=== PATIENT | male | born 1945 | race African-American/Black ===

== ENCOUNTER 2019-02-11 09:03 | Emergency (ER) | payer MEDICARE ==
[2019-02-11 10:16] LABS: Hemoglobin 13.4 gm/dl (11.8-15.2); Mean Corpuscular HGB Conc 35 % (32-34); Mean Corpuscular Volume 95 fl (84-94); Platelet Count 146 K/mm3 (140-440); Red Blood Count 4.02 M/mm3 (3.65-5.03)
--- NOTE | 2019-02-11 10:34 | Emergency Department Report ---
ED General Adult HPI - General Chief complaint: High BP Stated complaint: HYPERTENSION Time Seen by Provider: 02/11/19 10:05 Source: patient, EMS Mode of arrival: Stretcher Limitations: Language Barrier - History of Present Illness Initial comments: 73-year-old male presents to ED with complaint of hypertension and insomnia. Patient states he ran out of his sleeping pills, and has been unable to sleep for the last 2 nights. Patient states this has made him very tired. Patient reports he took his blood pressure this morning and it was 160s/90s. The patient denies headache, chest pain, shortness of breath, abdominal pain, vomiting, diarrhea or, fever. -: days(s) (2) Severity scale (0 -10): 0 Consistency: constant Improves with: medication Worsens with: none Associated Symptoms: denies: chest pain, cough, diaphoresis, fever/chills, headaches, nausea/vomiting, shortness of breath - Related Data Home Medications Medication Instructions Recorded Confirmed Last Taken Gabapentin [Neurontin] 300 mg PO DAILY 01/27/14 10/05/18 Unknown ALPRAZolam [Xanax TAB] 0.5 mg PO BID PRN 08/13/18 10/05/18 Unknown Cyclobenzaprine [Flexeril 10 MG 10 mg PO HS 08/13/18 10/05/18 Unknown TAB] Metoprolol [Lopressor TAB] 25 mg PO DAILY 08/13/18 10/05/18 Unknown Prazosin [Minipress] 1 mg PO HS 08/13/18 10/05/18 Unknown Ranitidine HCl [Acid Supervisor Anodizing] 150 mg PO BID 08/13/18 10/05/18 Unknown Previous Rx's Medication Instructions Recorded Last Taken Type metFORMIN XR [Glucophage XR] 500 mg PO QDDIAB #60 tablet 08/14/18 Unknown Rx Allergies Allergy/AdvReac Type Severity Reaction Status Date / Time No Known Allergies Allergy Verified 02/11/19 09:19 ED Review of Systems ROS: Stated complaint: HYPERTENSION Other details as noted in HPI Comment: All other systems reviewed and negative Constitutional: denies: chills, fever Respiratory: denies: cough, shortness of breath Cardiovascular: denies: chest pain Gastrointestinal: denies: abdominal pain, nausea, vomiting, diarrhea Neurological: weakness (generalized). denies: headache ED Past Medical Hx - Past Medical History Previous Medical History?: Yes Hx Hypertension: Yes Hx Heart Attack/AMI: No Hx Congestive Heart Failure: No Hx Diabetes: Yes Hx Deep Vein Thrombosis: No Hx Liver Disease: No Hx Arthritis: Yes Additional medical history: high cholesterol, sinusitis, - Surgical History Past Surgical History?: Yes Hx Coronary Stent: No Hx Pacemaker: No Hx Internal Defibrillator: No - Social History Smoking Status: Never Smoker - Medications Home Medications: Home Medications Medication Instructions Recorded Confirmed Last Taken Type Gabapentin [Neurontin] 300 mg PO DAILY 01/27/14 10/05/18 Unknown History ALPRAZolam [Xanax TAB] 0.5 mg PO BID PRN 08/13/18 10/05/18 Unknown History Cyclobenzaprine [Flexeril 10 MG 10 mg PO HS 08/13/18 10/05/18 Unknown History TAB] Metoprolol [Lopressor TAB] 25 mg PO DAILY 08/13/18 10/05/18 Unknown History Prazosin [Minipress] 1 mg PO HS 08/13/18 10/05/18 Unknown History Ranitidine HCl [Acid Supervisor Anodizing] 150 mg PO BID 08/13/18 10/05/18 Unknown History metFORMIN XR [Glucophage XR] 500 mg PO QDDIAB #60 tablet 08/14/18 10/05/18 Unknown Rx ED Physical Exam - General Limitations: Language Barrier General appearance: alert, in no apparent distress - Head Head exam: Present: atraumatic, normocephalic - Eye Eye exam: Present: normal appearance - ENT ENT exam: Present: mucous membranes moist - Neck Neck exam: Present: normal inspection - Respiratory Respiratory exam: Present: normal lung sounds bilaterally. Absent: respiratory distress - Cardiovascular Cardiovascular Exam: Present: regular rate, normal rhythm - GI/Abdominal GI/Abdominal exam: Present: soft. Absent: distended, tenderness - Extremities Exam Extremities exam: Present: normal inspection - Neurological Exam Neurological exam: Present: alert, oriented X3 - Psychiatric Psychiatric exam: Present: normal affect, normal mood - Skin Skin exam: Present: warm, dry, intact, normal color ED Course Vital Signs 02/11/19 02/11/19 09:17 11:53 Temperature 97.8 F Pulse Rate 92 H 70 Respiratory 20 18 Rate Blood Pressure 140/81 107/65 [Right] O2 Sat by Pulse 97 97 Oximetry ED Medical Decision Making - Lab Data Result diagrams: 02/11/19 10:03 02/11/19 10:03 - Medical Decision Making The patient presented to the ED for hypertension and insomnia. Patient not hyp ertensive here in ED. The patient reports that he has ran out of his medication to help him sleep at night. Labs unremarkable except for mild hyponatremia. Patient is neurologically intact, no neuro deficits on exam. Advised follow-up with his PCP for medication refill. Will discharge at this time. Critical care attestation.: If time is entered above; I have spent that time in minutes in the direct care of this critically ill patient, excluding procedure time. ED Disposition Clinical Impression: Insomnia Disposition: DC-01 TO HOME OR SELFCARE Is pt being admited?: No Condition: Stable Instructions: Insomnia (ED) Referrals: PRIMARY CARE, [Referring] - 3-5 Days Time of Disposition: 11:03
[2019-02-11 10:38] LABS: Alanine Aminotransferase 16 units/L (7-56); Albumin 3.8 g/dL (3.9-5); BUN/Creatinine Ratio 22; Blood Urea Nitrogen 13 mg/dL (9-20); Calcium 8.7 mg/dL (8.4-10.2); Hemolysis Index 8
[2019-02-11 10:49] LABS: Bilirubin,Urine NEG (Negative); Blood,Urine NEG (Negative); Color,Urine Yellow (Yellow); Protein,Urine <15 mg/dL mg/dL (Negative); Urobilinogen,Urine < 2.0 mg/dL (<2.0)
[2019-02-11 10:50] LABS: RBC,Urine < 1.0 /HPF (0.0-6.0); WBC,Urine < 1.0 /HPF (0.0-6.0)
[2019-02-11 11:54] VITALS: BP 107/65
== END 2019-02-11 11:54 | disposition home or self-care (01) ==
LOC: ED 09:03
DX: I10 Essential (primary) hypertension (principal); G47.00 Insomnia, unspecified; E11.9 Type 2 diabetes mellitus without complications; M19.90 Unspecified osteoarthritis, unspecified site; E78.00 Pure hypercholesterolemia, unspecified; Z79.899 Other long term (current) drug therapy
CPT/HCPCS: 36415; 80053; 81001; 82962; 85027

== ENCOUNTER 2019-06-12 09:27 | Inpatient (IN) | payer MEDICARE ==
[2019-06-12] MEDS ORDERED: ASPIRIN PO ONE (10:10)
[2019-06-12 10:33] LABS: Basophils % (Auto) 0.8 % (0.0-1.8); Eosinophils % (Auto) 0.6 % (0.0-4.3); Hematocrit 39.5 % (35.5-45.6); Lymphocytes # (Auto) 0.4 K/mm3 (1.2-5.4); Lymphocytes % (Auto) 13.3 % (13.4-35.0); Mean Corpuscular HGB Conc 35 % (32-34); Mean Corpuscular Volume 93 fl (84-94); Monocytes # (Auto) 0.4 K/mm3 (0.0-0.8); Monocytes % (Auto) 15.7 % (0.0-7.3); Platelet Count 151 K/mm3 (140-440); Red Blood Count 4.23 M/mm3 (3.65-5.03); Red Cell Distribution Width 13.6 % (13.2-15.2)
[2019-06-12 10:53] LABS: BUN/Creatinine Ratio 33; Blood Urea Nitrogen 13 mg/dL (9-20); Calcium 8.6 mg/dL (8.4-10.2); Hemolysis Index 7
[2019-06-12] MEDS ORDERED: NACL 0.9% 500 ML 500 ML IV ONE (11:22)
[2019-06-12] MEDS ORDERED: TYLENOL PO ONE (11:22)
[2019-06-12 11:48] LABS: Alanine Aminotransferase 16 units/L (7-56); Albumin 4.5 g/dL (3.9-5); Uric Acid 1.7 mg/dL (3.5-7.6)
[2019-06-12 12:00] LABS: Bilirubin,Direct < 0.2 mg/dL (0-0.2)
--- NOTE | 2019-06-12 12:12 | History and Physical Report ---
History of Present Illness Chief complaint: My head hurts, and I feel weak History of present illness: 73 YO Male with DM, HTN, OA, HLD, Depression, Severe Malnutrition, PTSD presents to ED for evaluation. Pt was in his normal state of health around bedtime at 2130 hours. Pt was awakened from sleep around 0500 hours feeling weak, as well as experienced a severe headache and chest discomfort. EMS notified, and upon a rrival the patient was found to be in distress. Pt seen and evaluated in ED and underwent CT head which revealed evidence of Subacute CVA. Pt also found to have hyponatremia. Pt initiated on CVA protocol, and admitted to ML unit with remote telemetry. Pt is outside therapeutic window for TPA. Neurology consulted. Pt initiated on anitplatelet therapy. Pt denies fever, chills, CP, palpitations, NVD, Productive cough, skin rash, or recent ill contacts. Prior admission on 10/04/18 reviewed. All listed medication reconciled at time of admission. Past History Past Medical History: other (see hpi) Past Surgical History: No surgical history, Other (reviewed) Social history: . denies: smoking, alcohol abuse, prescription drug abuse Family history: diabetes, hypertension Medications and Allergies Allergies Allergy/AdvReac Type Severity Reaction Status Date / Time No Known Allergies Allergy Verified 06/12/19 09:29 Home Medications Medication Instructions Recorded Confirmed Last Taken Type Gabapentin [Neurontin] 300 mg PO DAILY 01/27/14 10/05/18 Unknown History ALPRAZolam [Xanax TAB] 0.5 mg PO BID PRN 08/13/18 10/05/18 Unknown History Cyclobenzaprine [Flexeril 10 MG 10 mg PO HS 08/13/18 10/05/18 Unknown History TAB] Metoprolol [Lopressor TAB] 25 mg PO DAILY 08/13/18 10/05/18 Unknown History Prazosin [Minipress] 1 mg PO HS 08/13/18 10/05/18 Unknown History Ranitidine HCl [Acid Clay Miner] 150 mg PO BID 08/13/18 10/05/18 Unknown History metFORMIN XR [Glucophage XR] 500 mg PO QDDIAB #60 tablet 08/14/18 10/05/18 Unknown Rx Nitrofurantoin Camas/M-Cryst 100 mg PO Q12HR #14 capsule 05/10/19 Unknown Rx [Macrobid CAP] Famotidine [Pepcid] 40 mg PO QHS #30 tablet 05/11/19 Unknown Rx Ondansetron [Zofran Odt] 4 mg PO Q8HR #20 tab.rapdis 05/11/19 Unknown Rx Ondansetron [Zofran Odt] 4 mg PO Q8HR PRN #14 tab.rapdis 05/11/19 Unknown Rx levoFLOXacin [Levaquin TAB] 500 mg PO QDAY #7 tablet 05/11/19 Unknown Rx traMADol [Ultram] 50 mg PO Q6HR PRN #15 tablet 05/11/19 Unknown Rx Review of Systems Constitutional: no weight loss, no weight gain, no fever, no chills Ears, nose, mouth and throat: no ear pain, no ear discharge, no tinnitis, no decreased hearing, no nose pain, no nasal congestion Cardiovascular: no chest pain, no orthopnea, no palpitations, no rapid/irregular heart beat, no edema, no syncope Respiratory: no cough, no cough with sputum, no excessive sputum, no hemoptysis, no shortness of breath Gastrointestinal: no nausea, no vomiting, no diarrhea, no constipation Genitourinary Male: no hematuria, no flank pain, no discharge, no urinary hesitancy, no nocturia Rectal: no pain, no incontinence, no bleeding Musculoskeletal: no neck stiffness, no neck pain, no shooting arm pain, no arm numbness/tingling, no low back pain Integumentary: no rash, no pruritis, no redness, no sores, no wounds Neurological: weakness, headaches, no transient paralysis, no paralysis, no tingling, no seizures, no syncope Psychiatric: no anxiety, no memory loss, no change in sleep habits, no sleep disturbances, no hypersomnia, no change in appetite Endocrine: no cold intolerance, no heat intolerance, no polyphagia, no excessive thirst, no polyuria, no nocturia, no excessive sweating Hematologic/Lymphatic: no easy bruising, no easy bleeding, no lymphadenopathy, no lymphedema Allergic/Immunologic: no urticaria, no allergic rhinitis, no wheezing, no anaphylaxis Exam - Constitutional Vitals: Temp Pulse Resp BP Pulse Ox 98.1 F 73 18 143/81 97 06/12/19 09:29 06/12/19 09:29 06/12/19 09:29 06/12/19 09:29 06/12/19 09:29 General appearance: Present: mild distress - EENT Eyes: Present: PERRL ENT: hearing intact, clear oral mucosa - Neck Neck: Present: supple, normal ROM - Respiratory Respiratory effort: normal Respiratory: bilateral: CTA - Cardiovascular Heart Sounds: Present: S1 & S2. Absent: rub, click - Extremities Extremities: pulses symmetrical, No edema Peripheral Pulses: within normal limits - Abdominal General gastrointestinal: Present: soft, non-tender, non-distended, normal bowel sounds Male genitourinary: Present: normal - Integumentary Integumentary: Present: clear, warm, dry - Musculoskeletal Musculoskeletal: gait normal, strength equal bilaterally - Psychiatric Psychiatric: appropriate mood/affect, intact judgment & insight - Neurologic Neurologic: CNII-XII intact, moves all extremities Results - Labs CBC & Chem 7: 06/12/19 10:18 06/12/19 10:18 Labs: Abnormal lab results 06/12/19 06/12/19 06/12/19 Range/Units 09:43 10:18 10:18 WBC 2.7 L (4.5-11.0) K/mm3 MCH 33 H (28-32) pg MCHC 35 H (32-34) % Lymph % (Auto) 13.3 L (13.4-35.0) % Camas % (Auto) 15.7 H (0.0-7.3) % Lymph # 0.4 L (1.2-5.4) K/mm3 Sodium 118 L* (137-145) mmol/L Chloride 83.6 L (98-107) mmol/L Creatinine 0.4 L (0.8-1.5) mg/dL Glucose 127 H (75-100) mg/dL POC Glucose 143 H (70-105) Uric Acid (3.5-7.6) mg/dL Total Creatine Kinase (55-170) units/L 06/12/19 Range/Units 11:11 WBC (4.5-11.0) K/mm3 MCH (28-32) pg MCHC (32-34) % Lymph % (Auto) (13.4-35.0) % Cam[place] % (Auto) (0.0-7.3) % Lymph # (1.2-5.4) K/mm3 Sodium (137-145) mmol/L Chloride (98-107) mmol/L Creatinine (0.8-1.5) mg/dL Glucose (75-100) mg/dL POC Glucose (70-105) Uric Acid 1.7 L (3.5-7.6) mg/dL Total Creatine Kinase 249 H (55-170) units/L Assessment and Plan - Patient Problems (1) CVA (cerebral vascular accident) Current Visit: Yes Status: Acute Qualifiers: Precerebral and cerebral artery: middle cerebral artery Laterality of affected vessel: right Plan to address problem: Subacute R MCA Infarct: CTA protocol: CT head, neuro check, antiplatelet therapy, PT/OT/Speech therapy, Echo, carotid doppler, seizure precautions, swallow screening, Neurology consulted, further imaging as per neurology team. (2) Headache Current Visit: Yes Status: Acute Qualifiers: Headache chronicity pattern: acute headache Plan to address problem: CT head, neuor check, pain control (3) Hyponatremia Current Visit: Yes Status: Acute Plan to address problem: IVF resuscitation therapy, repeat bmp, (4) HTN (hypertension) Current Visit: Yes Status: Acute Qualifiers: Hypertension type: essential hypertension Qualified Code(s): I10 - Essential (primary) hypertension Plan to address problem: monitor bp q shift, permissive htn overnight. (5) HLD (hyperlipidemia) Current Visit: Yes Status: Acute Qualifiers: Hyperlipidemia type: mixed hyperlipidemia Qualified Code(s): E78.2 - Mixed hyperlipidemia Plan to address problem: Lipid panel, statin therapy. (6) Diabetes Current Visit: Yes Status: Acute Plan to address problem: ADA diet, insulin sliding scale, accucheck, hypoglycemia protocol (7) Osteoarthritis Current Visit: Yes Status: Acute Qualifiers: Laterality: unspecified laterality Plan to address problem: pain control, nsaid therapy, (8) Severe malnutrition Current Visit: Yes Status: Acute Plan to address problem: Encourage increased protein in take, dietary supplementation (9) DVT prophylaxis Current Visit: Yes Status: Acute Plan to address problem: SCD to BLE while in bed, supportive care
[2019-06-12] MEDS ORDERED: SODIUM CHLORIDE FLUSH SYRINGE 10 ML IV PRN ×2 (12:13→13:33)
[2019-06-12] MEDS ORDERED: PROVENTIL IH PRN (12:13)
--- NOTE | 2019-06-12 12:16 | Cat Scan Report ---
CT head/brain wo con INDICATION / CLINICAL INFORMATION: 73 years Male; headache. TECHNIQUE: Routine CT head without contrast. All CT scans at this location are performed using CT dos e reduction for ALARA by means of automated exposure control. COMPARISON: 01/27/2014 FINDINGS: BRAIN / INTRACRANIAL CONTENTS: Subacute branch MCA infarct seen in the middle/inferior frontal gyral region on the right. No signs of hemorrhagic transformation. Otherwise, no acute hemorrhage, mass effect, midline shift, hydrocephalus, or acute, large territoria l infarct. There are minimal areas of decreased attenuation in the white matter of the cerebral hemispheres. The se are nonspecific findings and may be related to microangiopathy (hypertension, diabetes, atheroscle rosis), given the patient's age. It might be difficult to evaluate for small areas of ischemia withou t diffusion imaging by MRI. CRANIOCERVICAL JUNCTION: No significant abnormality. ORBITS: No significant abnormality of visualized orbits. SINUSES / MASTOIDS: There is minimal mucosal thickening in the ethmoids. ADDITIONAL FINDINGS: No significant atherosclerotic disease appreciated. IMPRESSION: 1. Small region of subacute ischemia in the anterior MCA territory on the right as described above. N o signs of hemorrhagic transformation. Follow-up with diffusion imaging by MRI, as clinically warrant ed. Signer Name: Tan Sandra MD, III Signed: 06/12/2019 12:12 PM Workstation Name: [id number]
--- NOTE | 2019-06-12 12:18 | XRay Report ---
CHEST 2 VIEWS INDICATION / CLINICAL INFORMATION: Chest Pain. COMPARISON: 05/10/2019 FINDINGS: SUPPORT DEVICES: None. HEART / MEDIASTINUM: No significant abnormality. LUNGS / PLEURA: No significant pulmonary or pleural abnormality. No pneumothorax. ADDITIONAL FINDINGS: No significant additional findings. IMPRESSION: 1. No acute findings. Signer Name: Cody Vo MD Signed: 06/12/2019 12:14 PM Workstation Name: [id number]
--- NOTE | 2019-06-12 13:31 | Emergency Department Report ---
ED General Adult HPI - General Chief complaint: Hyperglycemia Stated complaint: CHEST PAIN/BLOOD SUGAR CHECK Time Seen by Provider: 06/12/19 10:53 Source: patient, EMS, business owner/engineer, RN notes reviewed, old records reviewed Mode of arrival: Ambulatory Limitations: Language Barrier - History of Present Illness Initial comments: Primary care Dr.: Dr. Jose Luis Emerson Commercial Pilot number: [id number] This is a 73-year-old gentleman. The patient reportedly has a history of arthritis, diabetes, hypertension and high cholesterol. The patient presents to the ER today with complaint of sensation of elevated blood sugar, and chest pain and headache. Apparently, his glucose was 172. The chest pain is left-sided. It's been present intermittently since 5:00 in the morning. It does not radiate anywhere. It does not have exacerbating or relieving factors. The patient denies DVT, pulmonary embolism risk factors. The headache is frontal. The headache has been present since 5:00 in the morning. The headache is intermittent. The headache is not described as sudden or thunderclap in nature. The patient denies neck pain, neck stiffness, chest pain, abdominal pain, shortness of breath and urinary symptoms. The patient denies alcohol consumption. The patient denies loss of vision, visual change, and jaw claudication. -: hour(s) Location: head, chest Severity scale (0 -10): 6 Quality: other Consistency: other Improves with: other Worsens with: other - Related Data Home Medications Medication Instructions Recorded Confirmed Last Taken Gabapentin [Neurontin] 300 mg PO DAILY 01/27/14 10/05/18 Unknown ALPRAZolam [Xanax TAB] 0.5 mg PO BID PRN 08/13/18 10/05/18 Unknown Cyclobenzaprine [Flexeril 10 MG 10 mg PO HS 08/13/18 10/05/18 Unknown TAB] Metoprolol [Lopressor TAB] 25 mg PO DAILY 08/13/18 10/05/18 Unknown Prazosin [Minipress] 1 mg PO HS 08/13/18 10/05/18 Unknown Ranitidine HCl [Acid Long Line Teamster] 150 mg PO BID 08/13/18 10/05/18 Unknown Previous Rx's Medication Instructions Recorded Last Taken Type metFORMIN XR [Glucophage XR] 500 mg PO QDDIAB #60 tablet 08/14/18 Unknown Rx Nitrofurantoin [place]/M-Cryst 100 mg PO Q12HR #14 capsule 05/10/19 Unknown Rx [Macrobid CAP] Famotidine [Pepcid] 40 mg PO QHS #30 tablet 05/11/19 Unknown Rx Ondansetron [Zofran Odt] 4 mg PO Q8HR #20 tab.rapdis 05/11/19 Unknown Rx Ondansetron [Zofran Odt] 4 mg PO Q8HR PRN #14 tab.rapdis 05/11/19 Unknown Rx levoFLOXacin [Levaquin TAB] 500 mg PO QDAY #7 tablet 05/11/19 Unknown Rx traMADol [Ultram] 50 mg PO Q6HR PRN #15 tablet 05/11/19 Unknown Rx Allergies Allergy/AdvReac Type Severity Reaction Status Date / Time No Known Allergies Allergy Verified 06/12/19 09:29 ED Review of Systems ROS: Stated complaint: CHEST PAIN/BLOOD SUGAR CHECK Other details as noted in HPI Constitutional: denies: fever Eyes: denies: vision change ENT: denies: dental pain, congestion Respiratory: denies: shortness of breath, SOB with exertion, SOB at rest, wheezing Cardiovascular: chest pain Gastrointestinal: denies: abdominal pain Genitourinary: denies: dysuria Skin: denies: lesions Neurological: headache. denies: weakness Hematological/Lymphatic: denies: easy bleeding ED Past Medical Hx - Past Medical History Hx Hypertension: Yes Hx Heart Attack/AMI: No Hx Congestive Heart Failure: No Hx Diabetes: Yes Hx Deep Vein Thrombosis: No Hx Liver Disease: No Hx Arthritis: Yes Additional medical history: high cholesterol, sinusitis, - Surgical History Hx Coronary Stent: No Hx Pacemaker: No Hx Internal Defibrillator: No - Social History Smoking Status: Unknown if ever smoked - Medications Home Medications: Home Medications Medication Instructions Recorded Confirmed Last Taken Type Gabapentin [Neurontin] 300 mg PO DAILY 01/27/14 10/05/18 Unknown History ALPRAZolam [Xanax TAB] 0.5 mg PO BID PRN 08/13/18 10/05/18 Unknown History Cyclobenzaprine [Flexeril 10 MG 10 mg PO HS 08/13/18 10/05/18 Unknown History TAB] Metoprolol [Lopressor TAB] 25 mg PO DAILY 08/13/18 10/05/18 Unknown History Prazosin [Minipress] 1 mg PO HS 08/13/18 10/05/18 Unknown History Ranitidine HCl [Acid Long Line Teamster] 150 mg PO BID 08/13/18 10/05/18 Unknown History metFORMIN XR [Glucophage XR] 500 mg PO QDDIAB #60 tablet 08/14/18 10/05/18 Unknown Rx Nitrofurantoin [place]/M-Cryst 100 mg PO Q12HR #14 capsule 05/10/19 Unknown Rx [Macrobid CAP] Famotidine [Pepcid] 40 mg PO QHS #30 tablet 05/11/19 Unknown Rx Ondansetron [Zofran Odt] 4 mg PO Q8HR #20 tab.rapdis 05/11/19 Unknown Rx Ondansetron [Zofran Odt] 4 mg PO Q8HR PRN #14 tab.rapdis 05/11/19 Unknown Rx levoFLOXacin [Levaquin TAB] 500 mg PO QDAY #7 tablet 05/11/19 Unknown Rx traMADol [Ultram] 50 mg PO Q6HR PRN #15 tablet 05/11/19 Unknown Rx ED Physical Exam - General Limitations: Language Barrier General appearance: alert, in no apparent distress - Head Head exam: Present: atraumatic, normocephalic - Eye Eye exam: Present: normal appearance, EOMI. Absent: nystagmus - ENT ENT exam: Present: normal exam, normal orophraynx, mucous membranes moist, normal external ear exam - Neck Neck exam: Present: normal inspection, full ROM. Absent: tenderness, meningismus - Respiratory Respiratory exam: Present: normal lung sounds bilaterally. Absent: respiratory distress - Cardiovascular Cardiovascular Exam: Present: regular rate, normal rhythm, normal heart sounds. Absent: bradycardia, tachycardia, irregular rhythm, systolic murmur, diastolic murmur, rubs, gallop - GI/Abdominal GI/Abdominal exam: Present: soft. Absent: distended, tenderness, guarding, rebound, rigid, pulsatile mass - Rectal Rectal exam: Present: deferred - Extremities Exam Extremities exam: Present: normal inspection, full ROM, other (2+ pulses noted in the bilateral upper, lower extremities. There is no long bone tenderness. Musculoskeletal compartments are soft. The pelvis is stable.). Absent: pedal edema, calf tenderness - Back Exam Back exam: Present: normal inspection, full ROM. Absent: tenderness, CVA tenderness (R), CVA tenderness (L), paraspinal tenderness, vertebral tenderness - Neurological Exam Neurological exam: Present: alert, other (visual acuity intact to finger c ounting and color perception at a close distance. There is no facial droop. The tongue is midline. The extraocular movements are intact bilaterally. There is 5 out of 5 strength bilateral upper, lower extremities. Sensation is intact to light touch bilateral upper, lower extremities.) - Psychiatric Psychiatric exam: Present: normal affect, normal mood - Skin Skin exam: Present: warm, dry, intact, normal color. Absent: rash ED Course Vital Signs 06/12/19 06/12/19 06/12/19 09:29 11:07 11:30 Temperature 98.1 F Pulse Rate 73 Respiratory 18 Rate Blood Pressure 143/81 143/78 154/79 O2 Sat by Pulse 97 98 98 Oximetry 06/12/19 06/12/19 12:00 12:30 Temperature Pulse Rate Respiratory Rate Blood Pressure 128/76 136/82 O2 Sat by Pulse 99 98 Oximetry ED Medical Decision Making - Lab Data Result diagrams: 06/12/19 10:18 06/12/19 10:18 Vital Signs 06/12/19 06/12/19 06/12/19 09:29 11:07 11:30 Temperature 98.1 F Pulse Rate 73 Respiratory 18 Rate Blood Pressure 143/81 143/78 154/79 O2 Sat by Pulse 97 98 98 Oximetry 06/12/19 06/12/19 12:00 12:30 Temperature Pulse Rate Respiratory Rate Blood Pressure 128/76 136/82 O2 Sat by Pulse 99 98 Oximetry Lab Results 06/12/19 06/12/19 06/12/19 Range/Units 09:43 10:18 10:18 WBC 2.7 L (4.5-11.0) K/mm3 RBC 4.23 (3.65-5.03) M/mm3 Hgb 14.0 (11.8-15.2) gm/dl Hct 39.5 (35.5-45.6) % MCV 93 (84-94) fl MCH 33 H (28-32) pg MCHC 35 H (32-34) % RDW 13.6 (13.2-15.2) % Plt Count 151 (140-440) K/mm3 Lymph % (Auto) 13.3 L (13.4-35.0) % [place] % (Auto) 15.7 H (0.0-7.3) % Eos % (Auto) 0.6 (0.0-4.3) % Baso % (Auto) 0.8 (0.0-1.8) % Lymph # 0.4 L (1.2-5.4) K/mm3 [place] # 0.4 (0.0-0.8) K/mm3 Eos # 0.0 (0.0-0.4) K/mm3 Baso # 0.0 (0.0-0.1) K/mm3 Seg Neutrophils % 69.6 (40.0-70.0) % Seg Neutrophils # 1.9 (1.8-7.7) K/mm3 Sodium 118 L* (137-145) mmol/L Potassium 4.4 (3.6-5.0) mmol/L Chloride 83.6 L (98-107) mmol/L Carbon Dioxide 22 (22-30) mmol/L Anion Gap 17 mmol/L BUN 13 (9-20) mg/dL Creatinine 0.4 L (0.8-1.5) mg/dL Estimated GFR > 60 ml/min BUN/Creatinine Ratio 33 % Glucose 127 H (75-100) mg/dL POC Glucose 143 H (70-105) Uric Acid (3.5-7.6) mg/dL Calcium 8.6 (8.4-10.2) mg/dL Magnesium (1.7-2.3) mg/dL Total Bilirubin (0.1-1.2) mg/dL Direct Bilirubin (0-0.2) mg/dL AST (5-40) units/L ALT (7-56) units/L Alkaline Phosphatase (35-129) units/L Total Creatine Kinase (55-170) units/L Troponin T < 0.010 (0.00-0.029) ng/mL Total Protein (6.3-8.2) g/dL Albumin (3.9-5) g/dL Albumin/Globulin Ratio % TSH (0.270-4.200) mlU/mL 06/12/19 06/12/19 Range/Units 11:11 11:11 WBC (4.5-11.0) K/mm3 RBC (3.65-5.03) M/mm3 Hgb (11.8-15.2) gm/dl Hct (35.5-45.6) % MCV (84-94) fl MCH (28-32) pg MCHC (32-34) % RDW (13.2-15.2) % Plt Count (140-440) K/mm3 Lymph % (Auto) (13.4-35.0) % [place] % (Auto) (0.0-7.3) % Eos % (Auto) (0.0-4.3) % Baso % (Auto) (0.0-1.8) % Lymph # (1.2-5.4) K/mm3 [place] # (0.0-0.8) K/mm3 Eos # (0.0-0.4) K/mm3 Baso # (0.0-0.1) K/mm3 Seg Neutrophils % (40.0-70.0) % Seg Neutrophils # (1.8-7.7) K/mm3 Sodium (137-145) mmol/L Potassium (3.6-5.0) mmol/L Chloride (98-107) mmol/L Carbon Dioxide (22-30) mmol/L Anion Gap mmol/L BUN (9-20) mg/dL Creatinine (0.8-1.5) mg/dL Estimated GFR ml/min BUN/Creatinine Ratio % Glucose (75-100) mg/dL POC Glucose (70-105) Uric Acid 1.7 L (3.5-7.6) mg/dL Calcium (8.4-10.2) mg/dL Magnesium 2.00 (1.7-2.3) mg/dL Total Bilirubin 0.30 (0.1-1.2) mg/dL Direct Bilirubin < 0.2 (0-0.2) mg/dL AST 23 (5-40) units/L ALT 16 (7-56) units/L Alkaline Phosphatase 68 (35-129) units/L Total Creatine Kinase 249 H (55-170) units/L Troponin T (0.00-0.029) ng/mL Total Protein 7.0 (6.3-8.2) g/dL Albumin 4.5 (3.9-5) g/dL Albumin/Globulin Ratio 1.8 % TSH 1.970 (0.270-4.200) mlU/mL - EKG Data -: EKG Interpreted by Ct EKG shows normal: sinus rhythm Rate: normal - EKG Data 06/12/19 13:35 The EKG shows a sinus rhythm, 79 bpm, normal axis, QTC is 398 ms, there is left ventricular hypertrophy, there is motion artifact. The EKG is abnormal, it is not consistent with ST elevation myocardial infarction. The EKG is unchanged from prior from April 2019. - Radiology Data Radiology results: report reviewed, image reviewed Differential diagnosis, including but not limited to: X-ray the chest is negative for acute disease. Noncontrast CT scan of the brain suggestive subacute MCA infarct. Referring Physician: LISA MARAVILLA Patient Name: NITHIN CHAUDHRY Date of : 1945 Sex: Male Report Date: 2019-06-12 Report Status: Finalized Findings [facility] [address] [place] [address] Cat Scan Report Signed Patient: NITHIN CHAUDHRY MR#: [id number] : 1945 Acct:[id number] Age/Sex: 73 / M ADM Date: 06/12/19 Loc: ED Attending Dr: Ordering Physician: LIAS MARAVILLA MD Date of Service: 06/12/19 Procedure(s): CT head/brain wo con Accession Number(s): [id number] cc: LISA MARAVILLA MD CT head/brain wo con INDICATION / CLINICAL INFORMATION: 73 years Male; headache. TECHNIQUE: Routine CT head without contrast. All CT scans at this location are performed using CT dose reduction for ALARA by means of automated exposure control. COMPARISON: 01/27/2014 FINDINGS: BRAIN / INTRACRANIAL CONTENTS: Subacute branch MCA infarct seen in the middle/inferior frontal gyral region on the right. No signs of hemorrhagic transformation. Otherwise, no acute hemorrhage, mass effect, midline shift, hydrocephalus, or acute, large territorial infarct. There are minimal areas of decreased attenuation in the white matter of the cerebral hemispheres. These are nonspecific findings and may be related to microangiopathy (hypertension, diabetes, atherosclerosis), given the patient's age. It might be difficult to evaluate for small areas of ischemia without diffusion imaging by MRI. CRANIOCERVICAL JUNCTION: No significant abnormality. ORBITS: No significant abnormality of visualized orbits. SINUSES / MASTOIDS: There is minimal mucosal thickening in the ethmoids. ADDITIONAL FINDINGS: No significant atherosclerotic disease appreciated. IMPRESSION: 1. Small region of subacute ischemia in the anterior MCA territory on the right as described above. No signs of hemorrhagic transformation. Follow-up with diffusion imaging by MRI, as clinically w arranted. Signer Name: Tan Sandra MD, III Signed: 06/12/2019 12:12 PM Workstation Name: [email or web address] Transcribed By: HR Dictated By: Tan Sandra MD Electronically Authenticated By: Tan Sandra MD Signed Date/Time: 06/12/19 1212 DD/ 1206 TD/TT: - Medical Decision Making Differential diagnosis, including but not limited to: Dehydration, pneumonia, urinary tract infection, electrolyte, migraine headache, tension headache, cluster headache, subacute stroke, acute coronary syndrome, pneumonia Assessment and plan: 73-year-old gentleman with a primary complaint of hyperglycemia, headache, and chest pain. The patient is afebrile with reassuring vital signs. He is not tachycardic, tachypneic, hypoxic, he is low risk by well's criteria. Troponin negative, EKG unchanged from prior, had a nuclear stress test earlier on this year negative for acute disease. GCS of 15, NIH score of 0. Exam not consistent or suggestive of large vessel occlusion at this time. CT scan of the brain suggests a subacute MCA infarct. Patient not a TPA candidate given last known well time is not known, given NIH score of 0. Emergent CT angiogram not indicated given exam at this time. Aspirin will be ordered. He is found to be hyponatremic. He'll be started on gentle IV hydration. X-ray the chest is unremarkable. Hospital physician, Dr. Ellington to admit. Critical care attestation.: If time is entered above; I have spent that time in minutes in the direct care of this critically ill patient, excluding procedure time. ED Disposition Clinical Impression: Hyponatremia, Headache Chest pain Qualifiers: Chest pain type: unspecified Qualified Code(s): R07.9 - Chest pain, unspecified Disposition: OP ADMIT IP TO THIS HOSP Is pt being admited?: Yes Does the pt Need Aspirin: Yes Condition: Good
[2019-06-12] MEDS ORDERED: TYLENOL PO PRN (13:33)
[2019-06-12] MEDS ORDERED: REGLAN PO PRN (13:33)
[2019-06-12] MEDS ORDERED: PHENERGAN PR PRN (13:33)
[2019-06-12] MEDS ORDERED: MILK OF MAGNESIA PO PRN (13:33)
[2019-06-12] MEDS ORDERED: DULCOLAX PR PRN (13:33)
[2019-06-12] MEDS ORDERED: ZOFRAN IV PRN (13:33)
[2019-06-12] MEDS ORDERED: ZOFRAN ODT PO PRN (13:34)
[2019-06-12] MEDS ORDERED: ULTRAM PO PRN (13:34)
[2019-06-12] MEDS ORDERED: XANAX PO PRN (13:34)
[2019-06-12] MEDS ORDERED: D50W (25GM) Syringe IV PRN (13:37)
[2019-06-12] MEDS: NACL 0.9% 1000 ML 1,000 ML IV SCH (14:00)
[2019-06-12 15:41] LABS: Bilirubin,Urine NEG (Negative); Blood,Urine NEG (Negative); Color,Urine Colorless (Yellow); Protein,Urine <15 mg/dL mg/dL (Negative); RBC,Urine < 1.0 /HPF (0.0-6.0); Urobilinogen,Urine < 2.0 mg/dL (<2.0); WBC,Urine < 1.0 /HPF (0.0-6.0)
[2019-06-12 15:56] LABS: Creatinine,Urine 17.8 mg/dL (0.1-20.0)
[2019-06-12] MEDS: HumaLOG SUB-Q SCH ×2 (16:24→23:15)
[2019-06-12] MEDS ORDERED: NON-FORMULARY (Famotidine [Pepcid] 40 MG) PO SCH (22:00)
[2019-06-12] MEDS ORDERED: NON-FORMULARY (Ranitidine Hcl [Acid Reducer] 150 MG) PO SCH (22:00)
[2019-06-12] MEDS: PRAZOSIN PO SCH (23:08)
[2019-06-12] MEDS: PEPCID PO SCH (23:08)
[2019-06-12] MEDS: FLEXERIL PO SCH (23:08)
[2019-06-12] MEDS: SODIUM CHLORIDE FLUSH SYRINGE 10 ML IV SCH (23:09)
[2019-06-13] MEDS: NACL 0.9% 1000 ML 1,000 ML IV SCH (03:03)
[2019-06-13 06:38] LABS: BUN/Creatinine Ratio 20; Blood Urea Nitrogen 8 mg/dL (9-20); Calcium 7.8 mg/dL (8.4-10.2); Hemolysis Index 8
--- NOTE | 2019-06-13 07:46 | Progress Note ---
Assessment and Plan Assessment and plan: 73 YO Male with DM, HTN, OA, HLD, Depression, Severe Malnutrition, PTSD presents to ED for evaluation. Pt was in his normal state of health around bedtime at 2130 hours. Pt was awakened from sleep around 0500 hours feeling weak, as well as experienced a severe headache and chest discomfort. EMS notified, and upon arrival the patient was found to be in distress. Pt seen and evaluated in ED and underwent CT head which revealed evidence of Subacute CVA. Pt also found to have hyponatremia. Pt initiated on CVA protocol, and admitted to ML unit with remote telemetry. Pt is outside therapeutic window for TPA. Neurology consulted. Pt initiated on anitplatelet therapy. Pt denies fever, chills, CP, palpitations, NVD, Productive cough, skin rash, or recent ill contacts. Prior admission on 10/04/18 reviewed. All listed medication reconciled at time of admission. * Per ED documentation: Primary complaint of hyperglycemia, headache, and chest pain, ...he had a nuclear stress test earlier on this year negative for acute disease * He is found to be hyponatremic. He'll be started on gentle IV hydration. X- ray the chest is unremarkable. CT HEAD: Small region of subacute ischemia in the anterior MCA territory on the right as described above. No signs of hemorrhagic transformation. Follow-up with diffusion imaging by MRI, as clinically w arranted. Carotid US: Pending. (1) CVA (cerebral vascular accident) Current Visit: Yes Status: Acute Qualifiers: Precerebral and cerebral artery: middle cerebral artery Laterality of affected vessel: right Plan to address problem: Subacute R MCA Infarct: neuro check, antiplatelet therapy, PT/OT/Speech therapy, Echo, carotid doppler, seizure precautions, swallow screening, Neurology consulted, further imaging as per neurology team. (2) Headache Current Visit: Yes Status: Acute Qualifiers: Headache chronicity pattern: acute headache Plan to address problem: Continue Neuro check, pain control (3) Hyponatremia Current Visit: Yes Status: Acute Plan to address problem: IVF resuscitation therapy, repeat bmp, Nephrology consulted (4) HTN (hypertension) Current Visit: Yes Status: Acute Qualifiers: Hypertension type: essential hypertension Qualified Code(s): I10 - Essential (primary) hypertension Plan to address problem: monitor bp q shift, permissive htn overnight. (5) HLD (hyperlipidemia) Current Visit: Yes Status: Acute Qualifiers: Hyperlipidemia type: mixed hyperlipidemia Qualified Code(s): E78.2 - Mixed hyperlipidemia Plan to address problem: Lipid panel, statin therapy. (6) Diabetes Current Visit: Yes Status: Acute Plan to address problem: ADA diet, insulin sliding scale, accucheck, hypoglycemia protocol (7) Osteoarthritis Current Visit: Yes Status: Acute Qualifiers: Laterality: unspecified laterality Plan to address problem: pain control, nsaid therapy, (8) Severe malnutrition Current Visit: Yes Status: Acute Plan to address problem: Encourage increased protein in take, dietary supplementation (9) Atypical chest pain: ?Costochondritis: Considering recent negative stress test this year and normal EKG, will have patient follow with Cardiology outpatient (10)DVT prophylaxis Current Visit: Yes Status: Acute Plan to address problem: SCD to BLE while in bed, supportive care Disposition: Continue inpatient care due to Low Sodium. Discharge in AM if sodium corrected History Interval history: F/U: CVA and Hyponatremia. Generalized weakness. Hospitalist Physical - Physical exam Narrative exam: General appearance: Present: Resting comfortable, - EENT Eyes: Present: PERRL ENT: hearing intact, clear oral mucosa - Neck Neck: Present: supple, normal ROM - Respiratory Respiratory effort: normal Respiratory: bilateral: CTA - Cardiovascular Heart Sounds: Present: S1 & S2. Absent: rub, click - Extremities Extremities: pulses symmetrical, No edema Peripheral Pulses: within normal limits - Abdominal General gastrointestinal: Present: soft, non-tender, non-distended, normal bowel sounds Male genitourinary: Present: normal - Integumentary Integumentary: Present: clear, warm, dry - Musculoskeletal Musculoskeletal: gait normal, strength equal bilaterally - Psychiatric Psychiatric: appropriate mood/affect, intact judgment & insight - Neurologic Neurologic: CNII-XII intact, moves all extremities - Constitutional Vitals: Temp Pulse Resp BP Pulse Ox 97.7 F 74 20 113/67 97 06/13/19 02:20 06/13/19 02:20 06/13/19 02:20 06/13/19 02:20 06/13/19 02:20 General appearance: Present: mild distress Results - Labs CBC & Chem 7: 06/12/19 10:18 06/13/19 05:40 Labs: Laboratory Last Values WBC 2.7 K/mm3 (4.5-11.0) L 06/12/19 10:18 RBC 4.23 M/mm3 (3.65-5.03) 06/12/19 10:18 Hgb 14.0 gm/dl (11.8-15.2) 06/12/19 10:18 Hct 39.5 % (35.5-45.6) 06/12/19 10:18 MCV 93 fl (84-94) 06/12/19 10:18 MCH 33 pg (28-32) H 06/12/19 10:18 MCHC 35 % (32-34) H 06/12/19 10:18 RDW 13.6 % (13.2-15.2) 06/12/19 10:18 Plt Count 151 K/mm3 (140-440) 06/12/19 10:18 Lymph % (Auto) 13.3 % (13.4-35.0) L 06/12/19 10:18 [place] % (Auto) 15.7 % (0.0-7.3) H 06/12/19 10:18 Eos % (Auto) 0.6 % (0.0-4.3) 06/12/19 10:18 Baso % (Auto) 0.8 % (0.0-1.8) 06/12/19 10:18 Lymph # 0.4 K/mm3 (1.2-5.4) L 06/12/19 10:18 [place] # 0.4 K/mm3 (0.0-0.8) 06/12/19 10:18 Eos # 0.0 K/mm3 (0.0-0.4) 06/12/19 10:18 Baso # 0.0 K/mm3 (0.0-0.1) 06/12/19 10:18 Seg Neutrophils % 69.6 % (40.0-70.0) 06/12/19 10:18 Seg Neutrophils # 1.9 K/mm3 (1.8-7.7) 06/12/19 10:18 Sodium 129 mmol/L (137-145) L D 06/13/19 05:40 Potassium 3.7 mmol/L (3.6-5.0) 06/13/19 05:40 Chloride 97.3 mmol/L (98-107) L 06/13/19 05:40 Carbon Dioxide 20 mmol/L (22-30) L 06/13/19 05:40 Anion Gap 15 mmol/L 06/13/19 05:40 BUN 8 mg/dL (9-20) L 06/13/19 05:40 Creatinine 0.4 mg/dL (0.8-1.5) L 06/13/19 05:40 Estimated GFR > 60 ml/min 06/13/19 05:40 BUN/Creatinine Ratio 20 % 06/13/19 05:40 Glucose 71 mg/dL (75-100) L 06/13/19 05:40 POC Glucose 80 (70-105) 06/12/19 23:21 Uric Acid 1.7 mg/dL (3.5-7.6) L 06/12/19 11:11 Calcium 7.8 mg/dL (8.4-10.2) L 06/13/19 05:40 Magnesium 2.00 mg/dL (1.7-2.3) 06/12/19 11:11 Total Bilirubin 0.30 mg/dL (0.1-1.2) 06/12/19 11:11 Direct Bilirubin < 0.2 mg/dL (0-0.2) 06/12/19 11:11 AST 23 units/L (5-40) 06/12/19 11:11 ALT 16 units/L (7-56) 06/12/19 11:11 Alkaline Phosphatase 68 units/L (35-129) 06/12/19 11:11 Total Creatine Kinase 249 units/L (55-170) H 06/12/19 11:11 Troponin T < 0.010 ng/mL (0.00-0.029) 06/12/19 16:15 Total Protein 7.0 g/dL (6.3-8.2) 06/12/19 11:11 Albumin 4.5 g/dL (3.9-5) 06/12/19 11:11 Albumin/Globulin Ratio 1.8 % 06/12/19 11:11 TSH 1.970 mlU/mL (0.270-4.200) 06/12/19 11:11 Urine Color Colorless (Yellow) 06/12/19 Unknown Urine Turbidity Clear (Clear) 06/12/19 Unknown Urine pH 7.0 (5.0-7.0) 06/12/19 Unknown Ur Specific [place] 1.005 (1.003-1.030) 06/12/19 Unknown Urine Protein <15 mg/dl mg/dL (Negative) 06/12/19 Unknown Urine Glucose (UA) Neg mg/dL (Negative) 06/12/19 Unknown Urine Ketones 20 mg/dL (Negative) 06/12/19 Unknown Urine Blood Neg (Negative) 06/12/19 Unknown Urine Nitrite Neg (Negative) 06/12/19 Unknown Urine Bilirubin Neg (Negative) 06/12/19 Unknown Urine Urobilinogen < 2.0 mg/dL (<2.0) 06/12/19 Unknown Ur Leukocyte Esterase Neg (Negative) 06/12/19 Unknown Urine WBC (Auto) < 1.0 /HPF (0.0-6.0) 06/12/19 Unknown Urine RBC (Auto) < 1.0 /HPF (0.0-6.0) 06/12/19 Unknown Urine Osmolality 256 Mosm/kg 06/12/19 Unknown Urine Creatinine 17.8 mg/dL (0.1-20.0) 06/12/19 Unknown Active Medications - Current Medications Current Medications: Generic Name Dose Route Start Last Admin Trade Name Freq PRN Reason Stop Dose Admin Acetaminophen 650 mg 06/12/19 13:33 Tylenol PO Q4H PRN Pain, Mild (1-3) Albuterol 2.5 mg 06/12/19 12:13 Proventil IH Q3H PRN Shortness Of Breath Alprazolam 0.5 mg 06/12/19 13:34 Xanax PO BID PRN Agitation Aspirin 325 mg 06/13/19 10:00 Aspirin PO QDAY LUIS Atorvastatin Calcium 40 mg 06/12/19 22:00 06/12/19 23:08 Lipitor PO 40 mg QHS LUIS Administration Bisacodyl 10 mg 06/12/19 13:33 Dulcolax [place] QDAY PRN Constipation Cyclobenzaprine HCl 10 mg 06/12/19 22:00 06/12/19 23:08 Flexeril PO 10 mg HS LUIS Administration Dextrose 50 ml 06/12/19 13:37 D50w (25gm) Syringe IV Q30MIN PRN Hypoglycemia Famotidine 40 mg 06/12/19 22:00 06/12/19 23:08 Pepcid PO 40 mg QHS LUIS Administration Gabapentin 300 mg 06/13/19 10:00 Neurontin PO DAILY LUIS Sodium Chloride 1,000 mls @ 75 mls/hr 06/12/19 13:00 06/13/19 03:03 Nacl 0.9% 1000 Ml IV 75 mls/hr DIRECT LUIS Administration Insulin Human Lispro 0 unit 06/12/19 16:30 06/12/19 23:15 Humalog SUB-Q Not Given ACHS [facility] Protocol Magnesium Hydroxide 30 ml 06/12/19 13:33 Milk Of Magnesia PO Q4H PRN Constipation Metoclopramide HCl 10 mg 06/12/19 13:33 Reglan PO Q6H PRN Nausea And Vomiting Ondansetron HCl 4 mg 06/12/19 13:33 Zofran IV Q8H PRN Nausea And Vomiting Ondansetron HCl 4 mg 06/12/19 13:34 Zofran Odt PO Q8HR PRN Nausea And Vomiting Prazosin HCl 1 mg 06/12/19 22:00 06/12/19 23:08 Minipress PO 1 mg HS LUIS Administration Promethazine HCl 25 mg 06/12/19 13:33 Phenergan [place] Q6H PRN Nausea And Vomiting Sodium Chloride 10 ml 06/12/19 22:00 06/12/19 23:09 Sodium Chloride Flush Syringe 10 Ml IV 10 ml BID LUIS Administration Sodium Chloride 10 ml 06/12/19 12:13 Sodium Chloride Flush Syringe 10 Ml IV PRN PRN LINE FLUSH Sodium Chloride 10 ml 06/12/19 13:33 Sodium Chloride Flush Syringe 10 Ml IV PRN PRN LINE FLUSH Tramadol HCl 50 mg 06/12/19 13:34 Ultram PO Q6HR PRN PAIN
[2019-06-13] MEDS: HumaLOG SUB-Q SCH ×4 (07:52→21:56)
[2019-06-13] MEDS: GABAPENTIN PO SCH (11:28)
[2019-06-13] MEDS: SODIUM CHLORIDE FLUSH SYRINGE 10 ML IV SCH ×2 (11:29→21:14)
[2019-06-13] MEDS: ASPIRIN PO SCH (11:29)
[2019-06-13] MEDS ORDERED: ATIVAN IV ONE (13:23)
--- NOTE | 2019-06-13 14:29 | Vascular Lab Report ---
"DUPLEX DOPPLER ULTRASOUND CAROTID, BILATERAL INDICATION: stroke. FINDINGS: RIGHT CAROTID: Mild plaque Right CCA velocity: 83 cm/sec. Right ICA peak systolic velocity: 68 cm/sec. ICA/CCA PSV Ratio: 0.8. Right Vertebral Artery: Antegrade flow. LEFT CAROTID: Mild plaque Left CCA velocity: 88 cm/sec. Left ICA peak systolic velocity: 110 cm/sec. ICA/CCA PSV Ratio: 1.26. Left Vertebral Artery: Antegrade flow. IMPRESSION: 1. Right Internal Carotid Artery: Less than 50% diameter stenosis. 2. Left Internal Carotid Artery: Less than 50% diameter stenosis. Velocity criteria are extrapolated from diameter data as defined by the Society of Radiologists in Ul trasound Consensus Conference, Radiology 2003; 229;340-346. Degree of Stenosis (%) || ICA PSV (cm/sec) || Plaque estimate (%) || ICA/CCA PSV Ratio Normal <125 None <2.0 <50 <125 <50 <2.0 50-69 125-230 50 2.0-4.0 70 but less than 100 >230 50 >4.0 Near occlusion High, low, or none visible variable Total occlusion None visible; no lumen N/A Signer Name: Jerome Burton MD Signed: 06/13/2019 2:25 PM Workstation Name: [id number]"
--- NOTE | 2019-06-13 18:29 | Consultation ---
History of Present Illness Consult date: 06/13/19 Reason for Consult: Stroke Chief complaint: Left sided weakness History of present illness: Patient is a 73 y/o man w/ a h/o HTN, HLD, DM, OA, depression, PTSD, malnutrition. He was last known normal at 9pm on 06/11/19. Patient awoke at about 5am on 06/12/19, and noted that he was weak on the LUE/LLE, and also was experiencing chest pain. He then came to [facility] for further evaluation. CT head on admission showed subacute Rt. MCA territory infarct. He states that his Lt. sided weakness persists. Patient was also found to have hyponatremia on admission. Past History Past Medical History: other (see hpi) Past Surgical History: No surgical history, Other (reviewed) Social history: , Lives alone. denies: smoking, alcohol abuse, prescription drug abuse Family history: diabetes, hypertension Medications and Allergies Allergies Allergy/AdvReac Type Severity Reaction Status Date / Time No Known Allergies Allergy Verified 06/12/19 09:29 Home Medications Medication Instructions Recorded Confirmed Last Taken Type Gabapentin [Neurontin] 300 mg PO DAILY 01/27/14 06/13/19 Unknown History ALPRAZolam [Xanax TAB] 0.5 mg PO BID PRN 08/13/18 06/13/19 Unknown History Cyclobenzaprine [Flexeril 10 MG 10 mg PO HS 08/13/18 06/13/19 06/10/19 History TAB] 10 mg Metoprolol [Lopressor TAB] 25 mg PO DAILY 08/13/18 06/13/19 Unknown History Prazosin [Minipress] 1 mg PO HS 08/13/18 06/13/19 Unknown History Ranitidine HCl [Acid Crane Assembler] 150 mg PO BID 08/13/18 06/13/19 Unknown History metFORMIN XR [Glucophage XR] 500 mg PO QDDIAB #60 tablet 08/14/18 06/13/19 Unknown Rx Nitrofurantoin [place]/M-Cryst 100 mg PO Q12HR #14 capsule 05/10/19 06/13/19 Unknown Rx [Macrobid CAP] Famotidine [Pepcid] 40 mg PO QHS #30 tablet 05/11/19 06/13/19 Unknown Rx Ondansetron [Zofran Odt] 4 mg PO Q8HR #20 tab.rapdis 05/11/19 06/13/19 Unknown Rx Ondansetron [Zofran Odt] 4 mg PO Q8HR PRN #14 tab.rapdis 05/11/19 06/13/19 Unknown Rx levoFLOXacin [Levaquin TAB] 500 mg PO QDAY #7 tablet 05/11/19 06/13/19 Unknown Rx traMADol [Ultram] 50 mg PO Q6HR PRN #15 tablet 05/11/19 06/13/19 Unknown Rx Active Meds: Active Medications Acetaminophen (Tylenol) 650 mg PO Q4H PRN PRN Reason: Pain, Mild (1-3) Albuterol (Proventil) 2.5 mg IH Q3H PRN PRN Reason: Shortness Of Breath Alprazolam (Xanax) 0.5 mg PO BID PRN PRN Reason: Agitation Aspirin (Aspirin) 325 mg PO QDAY [facility] Last Admin: 06/13/19 11:29 Dose: 325 mg Documented by: Atorvastatin Calcium (Lipitor) 40 mg PO QHS [facility] Last Admin: 06/12/19 23:08 Dose: 40 mg Documented by: Bisacodyl (Dulcolax) 10 mg TX QDAY PRN PRN Reason: Constipation Cyclobenzaprine HCl (Flexeril) 10 mg PO HS [facility] Last Admin: 06/12/19 23:08 Dose: 10 mg Documented by: Dextrose (D50w (25gm) Syringe) 50 ml IV Q30MIN PRN PRN Reason: Hypoglycemia Famotidine (Pepcid) 40 mg PO QHS [facility] Last Admin: 06/12/19 23:08 Dose: 40 mg Documented by: Gabapentin (Neurontin) 300 mg PO DAILY [facility] Last Admin: 06/13/19 11:28 Dose: 300 mg Documented by: Sodium Chloride (Nacl 0.9% 1000 Ml) 1,000 mls @ 75 mls/hr IV DIRECT [facility] Last Admin: 06/13/19 03:03 Dose: 75 mls/hr Documented by: Insulin Human Lispro (Humalog) 0 unit SUB-Q ACHS [facility]; Protocol Last Admin: 06/13/19 16:48 Dose: Not Given Documented by: Magnesium Hydroxide (Milk Of Magnesia) 30 ml PO Q4H PRN PRN Reason: Constipation Metoclopramide HCl (Reglan) 10 mg PO Q6H PRN PRN Reason: Nausea And Vomiting Ondansetron HCl (Zofran) 4 mg IV Q8H PRN PRN Reason: Nausea And Vomiting Ondansetron HCl (Zofran Odt) 4 mg PO Q8HR PRN PRN Reason: Nausea And Vomiting Prazosin HCl (Minipress) 1 mg PO HS [facility] Last Admin: 06/12/19 23:08 Dose: 1 mg Documented by: Promethazine HCl (Phenergan) 25 mg TX Q6H PRN PRN Reason: Nausea And Vomiting Sodium Chloride (Sodium Chloride Flush Syringe 10 Ml) 10 ml IV BID [facility] Last Admin: 06/13/19 11:29 Dose: 10 ml Documented by: Sodium Chloride (Sodium Chloride Flush Syringe 10 Ml) 10 ml IV PRN PRN PRN Reason: LINE FLUSH Tramadol HCl (Ultram) 50 mg PO Q6HR PRN PRN Reason: PAIN Last Admin: 06/13/19 11:40 Dose: 50 mg Documented by: Review of Systems All systems: negative Cardiovascular: chest pain Neurological: weakness Physical Examination - Vital Signs Vital Signs: Vital Signs Temp Pulse Resp BP Pulse Ox 98.1 F 73 18 143/81 97 06/12/19 09:29 06/12/19 09:29 06/12/19 09:29 06/12/19 09:29 06/12/19 09:29 - Physical Exam Narrative exam: Patient is awake, alert, oriented x4, follows complex commands. PERRL, EOMI, no facial weakness noted, tongue midline, b/l intact to LT. B/l intact to LT in all extremities. B/l intact to FTN and HTN. LUE/LLE: 4/5, RUE/RLE: 5/5. 2+ reflexes throughout. - Constitutional General appearance: comfortable - EENT EENT: Present: ATNC, PERRL, mucous membranes moist, hearing intact, vision intact - Respiratory Respiratory: Present: lungs clear, normal breath sounds - Cardiovascular Cardiovascular: Present: regular rate, normal S1, normal S2 Extremities: Present: no peripheral edema bilatateraly, no clubbing, cyanosis - Gastrointestinal Gastrointestinal: Present: normoactive bowel sounds, soft, non-tender - Integumentary Integumentary: Present: normal - Musculoskeletal Musculoskeletal: Present: no fluid collection, no pain - Psychiatric Psychiatric: Present: mood/affect appropriate - Level of Consciousness 1a. Level of Consciousness: alert/keenly responsive - LOC Questions 1b. LOC Questions: answers both correctly - LOC Command 1c. LOC Commands: performs tasks correctly - Best Gaze 2. Best Gaze: normal - Visual 3. Visual: no visual loss - Facial Palsy 4. Facial Palsy: normal symmetrical movement - Motor Arm 5a. Motor Arm Left: no drift 5b. Motor Arm Right: no drift - Motor Leg 6a. Motor Leg Left: no drift 6b. Motor Leg Right: no drift - Limb Ataxia 7. Limb Ataxia: absent - Sensory 8. Sensory: normal - Best Language 9. Best Language: no aphasia - Dysarthria 10. Dysarthria: normal - Extinction and Inattention 11. Extinction/Inattention: no abnormality - Scoring Total Score: 0 Stroke Severity: No Stroke Symptoms Results - Laboratory Findings CBC and BMP: 06/12/19 10:18 06/13/19 05:40 Abnormal Lab Findings: Abnormal Labs 06/12/19 06/12/19 06/12/19 09:43 10:18 10:18 WBC 2.7 L MCH 33 H MCHC 35 H Lymph % (Auto) 13.3 L [place] % (Auto) 15.7 H Lymph # 0.4 L Sodium 118 L* Chloride 83.6 L Carbon Dioxide BUN Creatinine 0.4 L Glucose 127 H POC Glucose 143 H Uric Acid Calcium Total Creatine Kinase 06/12/19 06/12/19 06/13/19 11:11 16:27 05:40 WBC MCH MCHC Lymph % (Auto) [place] % (Auto) Lymph # Sodium 129 L D Chloride 97.3 L Carbon Dioxide 20 L BUN 8 L Creatinine 0.4 L Glucose 71 L POC Glucose 143 H Uric Acid 1.7 L Calcium 7.8 L Total Creatine Kinase 249 H 06/13/19 11:23 WBC MCH MCHC Lymph % (Auto) [place] % (Auto) Lymph # Sodium Chloride Carbon Dioxide BUN Creatinine Glucose POC Glucose 115 H Uric Acid Calcium Total Creatine Kinase Assessment and Plan Patient is a 73 y/o man w/ a h/o HTN, HLD, DM, OA, depression, PTSD, ma lnutrition, who p/w left sided weakness and chest pain. According to the patient's clinical findings, it is likely that he has an [id number] stroke. Plan: 1. Stroke: - MRI pending - MRA head pending - CT head revealed sub-acute Rt. MCA territory infarct - Echo: EF 55-60%, bubble study negative, LA size normal - CUS: no significant stenosis - LDL pending - Cont. ASA - Cont. statin - PT/OT/ST - DVT Ppx: recommend lovenox - Telemetry monitoring while in house 2. Hypertension: - Recommend target BP of <220/120 for next 24 hours. Can target normotension on 06/14/19. - Continue to correct metabolic abnormalities per primary team - Will continue to monitor patient. Thank you for allowing me to take part in the care of this patient. Andrez Rivera MD Neurology
[2019-06-13] MEDS: FLEXERIL PO SCH (21:13)
[2019-06-13] MEDS: PEPCID PO SCH (21:14)
[2019-06-13] MEDS: PRAZOSIN PO SCH (21:14)
[2019-06-13 22:33] LABS: Chol/HDL Ratio 2.26 %
[2019-06-14] MEDS: NACL 0.9% 1000 ML 1,000 ML IV SCH (02:42)
[2019-06-14] MEDS: HumaLOG SUB-Q SCH ×2 (07:21→11:28)
[2019-06-14] MEDS ORDERED: ATIVAN IV ONE (09:00)
[2019-06-14 09:44] LABS: BUN/Creatinine Ratio 25; Blood Urea Nitrogen 10 mg/dL (9-20); Calcium 7.8 mg/dL (8.4-10.2); Hemolysis Index 45
[2019-06-14] MEDS: GABAPENTIN PO SCH (10:03)
[2019-06-14] MEDS: ASPIRIN PO SCH (10:03)
[2019-06-14] MEDS: SODIUM CHLORIDE FLUSH SYRINGE 10 ML IV SCH (10:03)
--- NOTE | 2019-06-14 10:05 | Magnetic Resonance Report ---
MRI BRAIN WITHOUT CONTRAST INDICATION / CLINICAL INFORMATION: stroke. TECHNIQUE: Multisequence, multiplanar images were obtained. COMPARISON: CT head dated 06/12/2019 FINDINGS: CEREBRAL and CEREBELLAR HEMISPHERES: No evidence for diffusion restriction. Increased diffusion signa l in the previously described subacute to chronic infarct in the right frontal lobe secondary to T2 s samantha through artifact. No decreased signal on the ADC map. In my opinion the right frontal ischemic i nsult is chronic and measures 3.1 x 2.7 cm in axial plane. No acute ischemia, hemorrhage, mass or mas s effect. Mild chronic periventricular white matter changes are noted. No diffusion restriction to s uggest acute infarct. No extra-axial fluid collection. VENTRICLES: Normal in size and configuration for age. VISUALIZED ORBITS: No significant abnormality. VISUALIZED PARANASAL SINUSES: Mild mucosal thickening in the ethmoid and maxillary sinuses. The masto id air cells are well-aerated. ADDITIONAL FINDINGS: None. IMPRESSION: No acute intracranial abnormality. Chronic right frontal infarct as described. MRA HEAD WITHOUT CONTRAST HISTORY: Stroke COMPARISON: MR brain performed the same day TECHNIQUE: Routine MRA of the head is performed. 3-D/MIP reformats postprocessed. CONTRAST: None. FINDINGS: Intracranial vertebral arteries: No significant abnormality. Basilar artery: No significant abnormality. Posterior cerebral arteries: No significant abnormality. Intracranial internal carotid arteries: No significant abnormality. Anterior cerebral arteries: No significant abnormality. Middle cerebral arteries: No significant abnormality. Additional findings: None. IMPRESSION: No significant abnormality. Signer Name: Laurent Glynn Jr, MD Signed: 06/14/2019 10:00 AM Workstation Name: [id number]
--- NOTE | 2019-06-14 10:49 | Discharge Summary ---
Providers - Providers Date of Admission: 06/12/19 12:13 Attending physician: PRECIOUS BAILEY MD 06/12/19 13:33 Occupational Therapy Evaluate and Treat [CONS] Routine Comment: Reason For Exam: Neuro deficits Physical Therapy Evaluation and Treat [CONS] Routine Comment: Reason For Exam: Neuro deficits 06/12/19 20:31 Consult to Physician [CONS] Routine Comment: noted/ danae Consulting Provider: JAYY LIRA Physician Instructions: Reason For Exam: cva 06/13/19 07:44 Consult to Physician [CONS] Routine Comment: Consulting Provider: JAYY LIRA Physician Instructions: Reason For Exam: cva [facility] Reason for admission: Chronic CVA, hyponatremia Condition: Stable Pertinent studies: MRI/MRA CT head Carotid doppler Hospital course: 73 YO Male with DM, HTN, OA, HLD, Depression, Severe Malnutrition, PTSD presents to ED for evaluation. Pt was in his normal state of health around bedtime at 2130 hours. Pt was awakened from sleep around 0500 hours feeling weak, as well as experienced a severe headache and chest discomfort. EMS notified, and upon arrival the patient was found to be in distress. Pt seen and evaluated in ED and underwent CT head which revealed evidence of Subacute CVA. Pt also found to have hyponatremia. Pt initiated on CVA protocol, and admitted to ML unit with remote telemetry. Pt is outside therapeutic window for TPA. Neurology consulted. Pt initiated on anitplatelet therapy. Pt denies fever, chills, CP, palpitations, NVD, Productive cough, skin rash, or recent ill contacts. Prior admission on 10/04/18 reviewed. All listed medication reconciled at time of admission. * Per ED documentation: Primary complaint of hyperglycemia, headache, and chest pain, ...he had a nuclear stress test earlier on this year negative for acute disease * He is found to be hyponatremic. He'll be started on gentle IV hydration. X- ray the chest is unremarkable. CT HEAD: Small region of subacute ischemia in the anterior MCA territory on the right as described above. No signs of hemorrhagic transformation. Follow-up with diffusion imaging by MRI, as clinically w arranted. Carotid US: <50% stenosis bilaterally. (1) CVA (cerebral vascular accident) MRI/MRA was done and showed chronic ischemic changes Neurology said no acute CVA it is chronic and recommend to follow with cardiology for event monitor and neurology. (2) Headache -Resolved (3) Hyponatremia - Patient was treated with IV fluids and improved. Discharged with few days of salt tablets. (4) HTN (hypertension) - Controlled (5) HLD (hyperlipidemia) Continue statin (6) Diabetes continue home meds. (7) Osteoarthritis pain control, nsaid therapy, (8) Severe malnutrition Encourage increased protein in take, dietary supplementation (9) Atypical chest pain: ?Costochondritis: Considering recent negative stress test this year and normal EKG, will have patient follow with Cardiology outpatient Disposition: [id number] TO HOME OR SELFCARE Time spent for discharge: 32 minutes - Discharge Diagnoses (1) CVA (cerebral vascular accident) Status: Acute Qualifiers: Precerebral and cerebral artery: middle cerebral artery Laterality of affected vessel: right (2) HLD (hyperlipidemia) Status: Acute Qualifiers: Hyperlipidemia type: mixed hyperlipidemia Qualified Code(s): E78.2 - Mixed hyperlipidemia (3) HTN (hypertension) Status: Acute Qualifiers: Hypertension type: essential hypertension Qualified Code(s): I10 - Essential (primary) hypertension (4) Hyponatremia Status: Acute (5) Severe malnutrition Status: Acute Core Measure Documentation - Palliative Care Palliative Care/ Comfort Measures: Not Applicable - Core Measures Any of the following diagnoses?: stroke - Stroke Discharge Requirements Statin for LDL = or >70 mg/dl on DC: Yes Anticoag for atrial fib/atrial flutter: Not Applicable Antithrombotic for ischemic stroke: Yes Exam - Physical Exam Narrative exam: Not in cardiopulmonary distress. The patient appeared well nourished and normally developed. Vital signs as documented. Head exam is unremarkable. No scleral icterus . Neck is without jugular venous distension, thyromegaly, or carotid bruits. Lungs are clear to auscultation. Cardiac exam reveals regular rate and Rhythm. Abdominal exam reveals normal bowel sounds. Extremities are nonedematous and both femoral and pedal pulses are normal. SNOW SHOVELER: Alert and oriented 3. No focal weakness. - Constitutional Vitals: Temp Pulse Resp BP Pulse Ox 98.0 F 81 20 136/80 99 06/14/19 07:12 06/14/19 10:00 06/14/19 07:12 06/14/19 07:12 06/14/19 07:12 Plan Activity: no restrictions Weight Bearing Status: Full Weight Bearing Diet: diabetic Follow up with: JORDY MORALES MD [Primary Care Provider] - 7 Days LAYTON TRIPATHI MD [Staff Physician] - 7 Days (Neurology wants the patient to be followed with cardiology for event monitor.) LAURO STROUD MD [Staff Physician] - 10 Days Prescriptions: AtorvaSTATin [Lipitor] 40 mg PO QHS #30 tablet Aspirin 325 mg PO QDAY #30 tablet Sodium Chloride 1 gm PO BID #6 tablet
[2019-06-14] MEDS ORDERED: SODIUM CHLORIDE PO SCH (11:30)
--- NOTE | 2019-06-14 12:30 | Progress Note ---
Assessment and Plan Patient is a 73 y/o man w/ a h/o HTN, HLD, DM, OA, depression, PTSD, malnutrition, who p/w left sided weakness and chest pain. According to the patient's clinical findings, it is likely that he has an xmxjl-re-dynxutuk stroke. Plan: 1. Stroke: - MRI reveals tqyjbmwo-[id number] infarct in Rt. MCA territory - MRA head: no significant stenosis - CT head revealed sub-acute Rt. MCA territory infarct - Echo: EF 55-60%, bubble study negative, LA size normal - CUS: no significant stenosis - LDL 72 - Cont. ASA - Cont. statin - PT/OT/ST - DVT Ppx: recommend lovenox - Telemetry monitoring while in house - Etiology of stroke is cryptogenic, as no intra/extra-cranial stenosis. Therefore recommend for patient to have long-term cardiac monitoring with either ILR or 30-day MCOT as outpatient. - If infarct is subacute/chronic, then worsening of symptoms may be due to recrudescence of previous stroke symptoms in setting of electrolyte abnorma lities. 2. Hypertension: - Recommend target BP of normotension. - Continue to correct metabolic abnormalities per primary team - Will sign off, as investigations complete and treatment plan is in place. Please call with any questions. Thank you for allowing me to take part in the care of this patient. Andrez Rivera MD Neurology Subjective Date of service: 06/14/19 Principal diagnosis: Stroke Interval history: No acute events overnight. Objective - Exam Narrative Exam: Patient is awake, alert, oriented x4, follows complex commands. PERRL, EOMI, no facial weakness noted, tongue midline, b/l intact to LT. B/l intact to LT in all extremities. B/l intact to FTN and HTN. LUE/LLE: 4/5, RUE/RLE: 5/5. 2+ reflexes throughout. - Vital Sign Vital Signs - 12hr 06/14/19 06/14/19 06/14/19 02:57 07:12 10:00 Temperature 97.2 F L 98.0 F Pulse Rate 69 74 81 Respiratory 18 20 Rate Blood Pressure 122/81 136/80 O2 Sat by Pulse 100 99 Oximetry - General Apperance Constitutional: comfortable - EENT EENT: ATNC, PERRL, mucous membranes moist, hearing intact, vision intact - Respiratory Respiratory: lungs clear, normal breath sounds - Cardiovascular Cardiovascular: regular rate, normal S1, normal S2 Extremities: no clubbing, cyanosis, no inflammation - Gastrointestinal Gastrointestinal: normoactive bowel sounds, soft, non-tender - Integumentary Integumentary: normal - Musculoskeletal Musculoskeletal: no fluid collection, no pain - Psychiatric Psychiatric: mood/affect appropriate - Laboratory Findings CBC and BMP: 06/12/19 10:18 06/14/19 07:45 Abnormal Lab Findings: Abnormal Labs 06/12/19 06/12/19 06/12/19 09:43 10:18 10:18 WBC 2.7 L MCH 33 H MCHC 35 H Lymph % (Auto) 13.3 L [place] % (Auto) 15.7 H Lymph # 0.4 L Sodium 118 L* Chloride 83.6 L Carbon Dioxide BUN Creatinine 0.4 L Glucose 127 H POC Glucose 143 H Uric Acid Calcium Total Creatine Kinase 06/12/19 06/12/19 06/13/19 11:11 16:27 05:40 WBC MCH MCHC Lymph % (Auto) [place] % (Auto) Lymph # Sodium 129 L D Chloride 97.3 L Carbon Dioxide 20 L BUN 8 L Creatinine 0.4 L Glucose 71 L POC Glucose 143 H Uric Acid 1.7 L Calcium 7.8 L Total Creatine Kinase 249 H 06/13/19 06/13/19 06/14/19 11:23 21:51 07:45 WBC MCH MCHC Lymph % (Auto) [place] % (Auto) Lymph # Sodium 130 L Chloride 96.9 L Carbon Dioxide 21 L BUN Creatinine 0.4 L Glucose 101 H POC Glucose 115 H 149 H Uric Acid Calcium 7.8 L Total Creatine Kinase 06/14/19 11:13 WBC MCH MCHC Lymph % (Auto) [place] % (Auto) Lymph # Sodium Chloride Carbon Dioxide BUN Creatinine Glucose POC Glucose 131 H Uric Acid Calcium Total Creatine Kinase
[2019-06-14 13:36] VITALS: BP 158/93
== END 2019-06-14 15:30 | disposition home or self-care (01) | DRG 64 ==
LOC: ED 09:27 → 2B-ACE 12:13
PROVIDERS: ADMIT Internal Medicine; ATTEND Internal Medicine
DX: I63.9 Cerebral infarction, unspecified (principal); E43 Unspecified severe protein-calorie malnutrition; E87.1 Hypo-osmolality and hyponatremia; Z68.1 Body mass index [BMI] 19.9 or less, adult; I10 Essential (primary) hypertension; E11.9 Type 2 diabetes mellitus without complications; M19.90 Unspecified osteoarthritis, unspecified site; F32.9 Major depressive disorder, single episode, unspecified; F43.10 Post-traumatic stress disorder, unspecified; M94.0 Chondrocostal junction syndrome [Tietze]; E78.2 Mixed hyperlipidemia; Z82.49 Family history of ischemic heart disease and other diseases of the circulatory system; Z71.3 Dietary counseling and surveillance; Z83.3 Family history of diabetes mellitus; Z79.899 Other long term (current) drug therapy
CPT/HCPCS: 36415; 70450; 70544; 70551; 71046; 80048; 80061; 80076; 81001; 82550; 82570; 82607; 82962; 83516; 83735; 83935; 84443; 84484; 84550; 85025; 87116; 93005; 93010; 93306; 93880; 96374; G0378; A9270-GY; J1815; J2060; J7030; J7040; J7050

== ENCOUNTER 2019-07-03 17:14 | Inpatient (IN) | payer MEDICARE ==
--- NOTE | 2019-07-03 18:59 | Event Note ---
ED Screening Note Date of service: 07/03/19 Time: 18:59 ED Screening Note: This initial assessment/diagnostic orders/clinical plan/treatment(s) is/are subject to change based on patients health status, clinical progression and re- assessment by fellow clinical providers in the ED. Further treatment and workup at subsequent clinical providers discretion. Patient/guardian urged not to elope from the ED as their condition may be serious if not clinically assessed and managed. Initial orders include:
--- NOTE | 2019-07-03 19:11 | Event Note ---
ED Screening Note Date of service: 07/03/19 Time: 19:09 ED Screening Note: Pt complains of epigastric pain, unable to sleep x 1 month, and sour mouth seen here 06/12/19 This initial assessment/diagnostic orders/clinical plan/treatment(s) is/are subject to change based on patients health status, clinical progression and re- assessment by fellow clinical providers in the ED. Further treatment and workup at subsequent clinical providers discretion. Patient/guardian urged not to elope from the ED as their condition may be serious if not clinically assessed and managed. Initial orders include: labs
[2019-07-03 20:11] LABS: Alanine Aminotransferase 19 units/L (7-56); Albumin 4.6 g/dL (3.9-5); BUN/Creatinine Ratio 22; Blood Urea Nitrogen 11 mg/dL (9-20); Calcium 8.8 mg/dL (8.4-10.2); Hemolysis Index 8
[2019-07-03 20:17] LABS: Bilirubin,Direct < 0.2 mg/dL (0-0.2)
[2019-07-03 20:18] LABS: Bilirubin,Urine NEG (Negative); Blood,Urine NEG (Negative); Calcium Oxalate Crystals,Urine 3+; Color,Urine Yellow (Yellow); Mucus,Urine FEW /HPF; Protein,Urine <15 mg/dL mg/dL (Negative)
[2019-07-03 20:19] LABS: RBC,Urine < 1.0 /HPF (0.0-6.0); WBC,Urine < 1.0 /HPF (0.0-6.0)
[2019-07-03 20:23] LABS: Hematocrit 42.6 % (35.5-45.6); Hemoglobin 14.8 gm/dl (11.8-15.2); Mean Corpuscular HGB Conc 35 % (32-34); Mean Corpuscular Volume 94 fl (84-94); Platelet Count 189 K/mm3 (140-440); Red Blood Count 4.53 M/mm3 (3.65-5.03)
[2019-07-03] MEDS ORDERED: SODIUM CHLORIDE 0.9% 1000 ML 1,000 ML IV ONE ×2 (20:28→22:11)
[2019-07-03 21:08] LABS: Alanine Aminotransferase 17 units/L (7-56); Albumin 3.9 g/dL (3.9-5); BUN/Creatinine Ratio 22; Blood Urea Nitrogen 11 mg/dL (9-20); Calcium 8.4 mg/dL (8.4-10.2); Hemolysis Index 68
--- NOTE | 2019-07-03 21:51 | XRay Report ---
CHEST 2 VIEWS INDICATION / CLINICAL INFORMATION: chest pain. COMPARISON: None available. FINDINGS: SUPPORT DEVICES: None. HEART / MEDIASTINUM: No significant abnormality. LUNGS / PLEURA: No significant pulmonary or pleural abnormality. No pneumothorax. ADDITIONAL FINDINGS: No significant additional findings. IMPRESSION: 1. No acute findings. Signer Name: Wenceslao Carpenter MD Signed: 07/03/2019 9:47 PM Workstation Name: [id number]
--- NOTE | 2019-07-03 21:54 | Cat Scan Report ---
CT ABDOMEN AND PELVIS WITHOUT CONTRAST INDICATION / CLINICAL INFORMATION: abd pain. Diffuse abdominal pain. TECHNIQUE: Axial CT images were obtained through the abdomen and pelvis without IV contrast. All CT scans at is location are performed using CT dose reduction for ALARA by means of automated exposure control. COMPARISON: None available. FINDINGS: LOWER CHEST: No significant abnormality. LIVER: No significant abnormality. GALLBLADDER: No significant abnormality. BILE DUCTS: No significant abnormality. PANCREAS: No significant abnormality. SPLEEN: No significant abnormality. ADRENALS: No significant abnormality. RIGHT KIDNEY and URETER: No significant abnormality. LEFT KIDNEY and URETER: No significant abnormality. STOMACH and SMALL BOWEL: No significant abnormality. COLON: No significant abnormality. APPENDIX: No significant abnormality. PERITONEUM: No free fluid. No free air. No fluid collection. LYMPH NODES: No significant adenopathy. AORTA and ARTERIES: No significant abnormality. IVC and VEINS: No significant abnormality. URINARY BLADDER: There is a focal 3 mm stone identified at the right ureterovesical junction but this does not appear to be causing significant obstruction. There are several passed stones throughout e urinary bladder lumen measuring in size between 2 and 3 mm in diameter.. REPRODUCTIVE ORGANS: No significant abnormality. ADDITIONAL FINDINGS: The exam was somewhat limited secondary to diffuse respiratory motion artifact t hroughout much of the exam. SKELETAL SYSTEM: No significant abnormality. IMPRESSION: Multiple stones identified along the dependent portion of the urinary bladder lumen, nonspecific. The re appears to be a stone near the right ureterovesical junction however there is no evidence of hydro nephrosis within either kidney. Please see above comments. Signer Name: Wenceslao Carpenter MD Signed: 07/03/2019 9:50 PM Workstation Name: [id number]
--- NOTE | 2019-07-03 22:10 | Emergency Department Report ---
ED General Adult HPI - General Chief complaint: High BP Stated complaint: HTN Time Seen by Provider: 07/03/19 18:57 Source: EMS Mode of arrival: Ambulatory Limitations: Language Barrier - History of Present Illness Initial comments: Mr Mansfield is a 73 y/o maltese speaking male, with hx of htn and GERD, PCP is Jose Luis Emerson, fluid dynamicist line was used for this patient, he does speak some brit[place] islander sufficient for accurate information gathering and care. Pt was brought in by ems for htn and abd pain , pt states abdominal cramping and pain generalized x 3 weeks. pt states nausea no vomiting. There is no fever no chills no sob, no back pain , Onset/Timin -: week(s) Location: abdomen Radiation: non-radiation Severity scale (0 -10): 5 Quality: aching, other (cramping ) Consistency: intermittent Improves with: none Worsens with: none Associated Symptoms: nausea/vomiting Treatments Prior to Arrival: none - Related Data Home Medications Medication Instructions Recorded Confirmed Last Taken Metoprolol [Lopressor TAB] 25 mg PO DAILY 08/13/18 06/13/19 Unknown Ranitidine HCl [Acid Assembler 1St Shift] 150 mg PO BID 08/13/18 06/13/19 Unknown Citalopram [celeXA] 20 mg PO QDAY 07/03/19 07/03/19 Unknown Tamsulosin [Flomax] 0.4 mg PO QDAY 07/03/19 07/03/19 Unknown Previous Rx's Medication Instructions Recorded Last Taken Type metFORMIN XR [Glucophage XR] 500 mg PO QDDIAB #60 tablet 08/14/18 Unknown Rx Aspirin 325 mg PO QDAY #30 tablet 06/14/19 Unknown Rx AtorvaSTATin [Lipitor] 40 mg PO QHS #30 tablet 06/14/19 Unknown Rx Allergies Allergy/AdvReac Type Severity Reaction Status Date / Time No Known Allergies Allergy Verified 06/12/19 09:29 ED Review of Systems ROS: Stated complaint: HTN Other details as noted in HPI Constitutional: denies: chills, fever Eyes: denies: eye pain, eye discharge, vision change ENT: denies: ear pain, throat pain Respiratory: denies: cough, shortness of breath, wheezing Cardiovascular: denies: chest pain, palpitations Endocrine: no symptoms reported Gastrointestinal: abdominal pain, nausea. denies: vomiting Genitourinary: denies: urgency, dysuria Musculoskeletal: denies: back pain, joint swelling, arthralgia Skin: as per HPI Neurological: denies: headache, weakness, paresthesias Psychiatric: denies: anxiety, depression Hematological/Lymphatic: denies: easy bleeding, easy bruising ED Past Medical Hx - Past Medical History Hx Hypertension: Yes Hx Heart Attack/AMI: No Hx Congestive Heart Failure: No Hx Diabetes: Yes Hx Deep Vein Thrombosis: No Hx Liver Disease: No Hx Arthritis: Yes Additional medical history: high cholesterol, sinusitis,insomnia - Surgical History Hx Coronary Stent: No Hx Pacemaker: No Hx Internal Defibrillator: No - Social History Smoking Status: Never Smoker Substance Use Type: None - Medications Home Medications: Home Medications Medication Instructions Recorded Confirmed Last Taken Type Metoprolol [Lopressor TAB] 25 mg PO DAILY 08/13/18 06/13/19 Unknown History Ranitidine HCl [Acid Assembler 1St Shift] 150 mg PO BID 08/13/18 06/13/19 Unknown History metFORMIN XR [Glucophage XR] 500 mg PO QDDIAB #60 tablet 08/14/18 06/13/19 Unknown Rx Aspirin 325 mg PO QDAY #30 tablet 06/14/19 Unknown Rx AtorvaSTATin [Lipitor] 40 mg PO QHS #30 tablet 06/14/19 Unknown Rx Citalopram [celeXA] 20 mg PO QDAY 07/03/19 07/03/19 Unknown History Tamsulosin [Flomax] 0.4 mg PO QDAY 07/03/19 07/03/19 Unknown History ED Physical Exam - General Limitations: Language Barrier - Head Head exam: Present: atraumatic, normocephalic - Eye Eye exam: Present: normal appearance, PERRL, EOMI Pupils: Present: normal accommodation - ENT ENT exam: Present: mucous membranes moist - Neck Neck exam: Present: normal inspection, full ROM. Absent: tenderness - Respiratory Respiratory exam: Present: normal lung sounds bilaterally. Absent: respiratory distress, wheezes, stridor, chest wall tenderness - Cardiovascular Cardiovascular Exam: Present: regular rate, normal rhythm, normal heart sounds. Absent: systolic murmur, diastolic murmur, rubs, gallop - GI/Abdominal GI/Abdominal exam: Present: soft, tenderness (bilat lower abd ), normal bowel s ounds. Absent: guarding, rebound, rigid, bruit, hernia - Rectal Rectal exam: Present: deferred - Extremities Exam Extremities exam: Present: normal inspection, full ROM, normal capillary refill. Absent: tenderness, pedal edema - Back Exam Back exam: Present: normal inspection, full ROM. Absent: tenderness, CVA tenderness (R), CVA tenderness (L), vertebral tenderness, rash noted - Neurological Exam Neurological exam: Present: alert, oriented X3, CN II-XII intact, normal gait - Psychiatric Psychiatric exam: Present: normal affect, normal mood - Skin Skin exam: Present: warm, dry, intact, normal color. Absent: rash ED Course Vital Signs 07/03/19 07/03/19 19:09 20:39 Temperature 98.1 F 98.1 F Pulse Rate 78 71 Respiratory 18 16 Rate Blood Pressure 143/84 Blood Pressure 167/91 [Left] O2 Sat by Pulse 96 96 Oximetry ED Medical Decision Making - Lab Data Result diagrams: 07/03/19 19:34 07/03/19 20:43 Labs 07/03/19 07/03/19 07/03/19 19:34 19:34 20:43 WBC 4.4 L RBC 4.53 Hgb 14.8 Hct 42.6 MCV 94 MCH 33 H MCHC 35 H RDW 14.0 Plt Count 189 Sodium 122 L Potassium 3.9 Chloride 86.3 L Carbon Dioxide 21 L Anion Gap 19 BUN 11 Creatinine 0.5 L Estimated GFR > 60 BUN/Creatinine Ratio 22 Glucose 94 Calcium 8.8 Total Bilirubin 0.60 Direct Bilirubin < 0.2 Indirect Bilirubin 0.4 AST 21 ALT 19 Alkaline Phosphatase 62 Troponin T < 0.010 < 0.010 Total Protein 7.2 Albumin 4.6 Albumin/Globulin Ratio 1.8 Lipase 70 H Urine Color Urine Turbidity Urine pH Ur Specific [place] Urine Protein Urine Glucose (UA) Urine Ketones Urine Blood Urine Nitrite Urine Bilirubin Urine Urobilinogen Ur Leukocyte Esterase Urine WBC (Auto) Urine RBC (Auto) Calcium Oxalate Crystal Urine Mucus 07/03/19 07/03/19 20:43 Unknown WBC RBC Hgb Hct MCV MCH MCHC RDW Plt Count Sodium 121 L Potassium 3.8 Chloride 88.3 L Carbon Dioxide 19 L Anion Gap 18 BUN 11 Creatinine 0.5 L Estimated GFR > 60 BUN/Creatinine Ratio 22 Glucose 91 Calcium 8.4 Total Bilirubin 0.50 Direct Bilirubin Indirect Bilirubin AST 24 ALT 17 Alkaline Phosphatase 52 Troponin T Total Protein 6.4 Albumin 3.9 Albumin/Globulin Ratio 1.6 Lipase Urine Color Yellow Urine Turbidity Slightly-cloudy Urine pH 7.0 Ur Specific [place] 1.013 Urine Protein <15 mg/dl Urine Glucose (UA) Neg Urine Ketones 20 Urine Blood Neg Urine Nitrite Neg Urine Bilirubin Neg Urine Urobilinogen 2.0 Ur Leukocyte Esterase Neg Urine WBC (Auto) < 1.0 Urine RBC (Auto) < 1.0 Calcium Oxalate Crystal 3+ Urine Mucus Few - EKG Data EKG shows normal: sinus rhythm Rate: normal - EKG Data Interpretation: normal EKG - Radiology Data Radiology results: report reviewed, image reviewed - Medical Decision Making cxr : normal no infiltrate no opacities, ct abd pelv: multiple bladder stones, 1 3mm renal stone no obstructive, ua: normal, Na: 121, k: 3.4, ivf bolus, ns iv, monitor electrolytes, ekg: NSR, trop: ,0.01 plan admit to hospitalist for hyponatremia , consulted hospitalist ,recommendation admit to inpatient, dx: hyponatremia, pt care hand off given in hospitalist at this time. Critical care attestation.: If time is entered above; I have spent that time in minutes in the direct care of this critically ill patient, excluding procedure time. ED Disposition Clinical Impression: Hyponatremia, Bladder stones, Renal stones Disposition: OP ADMIT IP TO THIS HOSP Is pt being admited?: No Does the pt Need Aspirin: No Condition: Stable
--- NOTE | 2019-07-03 22:54 | History and Physical Report ---
History of Present Illness Date of examination: 07/03/19 History of present illness: History is via the stream control officer. Is a 73-year-old man with a history of hypertension, diabetes, hyperlipidemia, depression, PTSD comes emergency room because he noted that his blood pressure was high. He stated that he is worried, lives alone and he has difficulty sleeping for the last 1 month. He checked his pressures today and was elevated so he came to the emergency room for further evaluation. He is on a diuretic, he does not recall the name Review Of Systems: Constitutional: no weight loss, fever, chills Ears, eyes, nose, mouth and throat: no nasal congestion, no nasal discharge, no sinus pressure, blurry vision, diplopia Neck: No neck pain or rigidity. Cardiovascular: No palpitations, chest pain Respiratory: No shortness of breath, cough Gastrointestinal: No hematochezia, abdominal pain Genitourinary : no dysuria, frequency Musculoskeletal: no muscle ache , joint pain Integumentary: no rash, no pruritis Neurological: no parathesias, focal weakness Endocrine: no cold or heat intolerance, no polyuria or polydipsia Hematologic/Lymphatic: no easy bruising, no easy bleeding, no gland swelling Allergic/Immunologic: no urticaria, no angioedema. PAST MEDICAL HISTORY:hypertension, diabetes, hyperlipidemia, depression, PTSD PAST SURGICAL HISTORY: None FAMILY HISTORY:hypertension, diabetes SOCIAL HISTORY: Denies tobacco, drugs, alcohol Medications and Allergies Allergies Allergy/AdvReac Type Severity Reaction Status Date / Time No Known Allergies Allergy Verified 06/12/19 09:29 Home Medications Medication Instructions Recorded Confirmed Last Taken Type Metoprolol [Lopressor TAB] 25 mg PO DAILY 08/13/18 07/03/19 Unknown History Ranitidine HCl [Acid Marine Tower Operator] 150 mg PO BID 08/13/18 07/03/19 Unknown History metFORMIN XR [Glucophage XR] 500 mg PO QDDIAB #60 tablet 08/14/18 07/03/19 Unknown Rx Aspirin 325 mg PO QDAY #30 tablet 06/14/19 07/03/19 Unknown Rx AtorvaSTATin [Lipitor] 40 mg PO QHS #30 tablet 06/14/19 07/03/19 Unknown Rx Citalopram [celeXA] 20 mg PO QDAY 07/03/19 07/03/19 Unknown History Tamsulosin [Flomax] 0.4 mg PO QDAY 07/03/19 07/03/19 Unknown History Active Meds: Active Medications Sodium Chloride (Nacl 0.9% 1000 Ml) 1,000 mls @ 250 mls/hr IV ONCE ONE Stop: 07/04/19 02:10 Exam - Physical Exam Narrative exam: General Apperance: The patient sitting in bed no acute distress HEENT: Normocephalic, atraumatic. Pupils equally round and reactive to light, extraocular movement intact, and no sclericterus or JVD or thyromegaly or nodule. Neck supple, no carotid bruit, mucous membranes moist, no exudate or erythema Heart: S1-S2, regular is rhythm Lungs: Clear to auscultation bilaterally, breathing comfortable Abdomen: Positive bowel sounds, soft, nontender, nondistended, no organomegaly Extremities: No edema cyanosis clubbing Skin: no rash, nodule, warm and dry Neuro:CN 2 -12 intact, motor/sensory intact, speech is fluent - Constitutional Vitals: Temp Pulse Resp BP Pulse Ox 98.1 F 66 13 154/86 98 07/03/19 20:39 07/03/19 22:00 07/03/19 22:00 07/03/19 22:00 07/03/19 22:00 Results - Labs CBC & Chem 7: 07/03/19 19:34 07/03/19 20:43 Labs: Abnormal lab results 07/03/19 07/03/19 07/03/19 Range/Units 19:34 19:34 20:43 WBC 4.4 L (4.5-11.0) K/mm3 MCH 33 H (28-32) pg MCHC 35 H (32-34) % Sodium 122 L 121 L (137-145) mmol/L Chloride 86.3 L 88.3 L (98-107) mmol/L Carbon Dioxide 21 L 19 L (22-30) mmol/L Creatinine 0.5 L 0.5 L (0.8-1.5) mg/dL Lipase 70 H (13-60) units/L - Imaging and Cardiology Chest x-ray: report reviewed CT scan - abdomen: report reviewed CT scan - pelvis: report reviewed Assessment and Plan Assessment Hyponatremia secondary to diuretic hypertension diabetes hyperlipidemia depression PTSD Plan Admit to medicine Surgery fluid, consult renal Check fingersticks initiate insulin sliding scale Continued appropriate outpatient medication DVT prophylaxis
[2019-07-03] MEDS ORDERED: SODIUM CHLORIDE 0.9% 1000 ML 1,000 ML IV SCH ×2 (23:00→23:45)
[2019-07-03] MEDS ORDERED: ONDANSETRON 4 MG/2 ML INJ IV PRN (23:13)
[2019-07-03] MEDS ORDERED: ACETAMINOPHEN 325 MG TAB PO PRN (23:13)
[2019-07-04] MEDS ORDERED: hydrALAZINE 20 MG/1 ML INJ IV PRN (01:10)
[2019-07-04] MEDS ORDERED: DEXTROSE 50% IN WATER (25GM) 50 ML SYRINGE IV PRN (02:34)
[2019-07-04 06:40] LABS: Basophils % (Auto) 1.2 % (0.0-1.8); Eosinophils % (Auto) 0.9 % (0.0-4.3); Hematocrit 41.2 % (35.5-45.6); Hemoglobin 14.2 gm/dl (11.8-15.2); Lymphocytes # (Auto) 0.5 K/mm3 (1.2-5.4); Lymphocytes % (Auto) 15.2 % (13.4-35.0); Mean Corpuscular HGB Conc 35 % (32-34); Mean Corpuscular Volume 95 fl (84-94); Monocytes # (Auto) 0.4 K/mm3 (0.0-0.8); Monocytes % (Auto) 11.2 % (0.0-7.3); Platelet Count 157 K/mm3 (140-440); Red Blood Count 4.34 M/mm3 (3.65-5.03); Red Cell Distribution Width 14.1 % (13.2-15.2)
[2019-07-04 06:53] LABS: BUN/Creatinine Ratio 20; Blood Urea Nitrogen 8 mg/dL (9-20); Calcium 7.8 mg/dL (8.4-10.2); Hemolysis Index 7
[2019-07-04] MEDS ORDERED: POTASSIUM CHLORIDE ER 20 MEQ TAB PO ONE (10:00)
[2019-07-04] MEDS: INSULIN LISPRO 100 UNIT/ML SUB-Q SCH ×4 (10:37→22:34)
--- NOTE | 2019-07-04 10:37 | Consultation ---
History of Present Illness - Reason for Consult Consult date: 07/04/19 hyponatremia - History of Present Illness History is via shot peening operator. This is a 73-year-old man with a history of hypertension, diabetes, hyperlipidemia, depression, PTSD who presents with high blood pressure, found to have hyponatremia to 122. He is not aware of what medications he takes, including diuretic use. He denies any issues this AM. Past History Past Medical History: diabetes, hypertension, hyperlipidemia Past Surgical History: No surgical history Social history: no significant social history Family history: no significant family history Medications and Allergies Allergies Allergy/AdvReac Type Severity Reaction Status Date / Time No Known Allergies Allergy Verified 06/12/19 09:29 Home Medications Medication Instructions Recorded Confirmed Last Taken Type Metoprolol [Lopressor TAB] 25 mg PO DAILY 08/13/18 07/03/19 Unknown History Ranitidine HCl [Acid Bull Fiddle Player] 150 mg PO BID 08/13/18 07/03/19 Unknown History metFORMIN XR [Glucophage XR] 500 mg PO QDDIAB #60 tablet 08/14/18 07/03/19 Unknown Rx Aspirin 325 mg PO QDAY #30 tablet 06/14/19 07/03/19 Unknown Rx AtorvaSTATin [Lipitor] 40 mg PO QHS #30 tablet 06/14/19 07/03/19 Unknown Rx Citalopram [celeXA] 20 mg PO QDAY 07/03/19 07/03/19 Unknown History Tamsulosin [Flomax] 0.4 mg PO QDAY 07/03/19 07/03/19 Unknown History Active Meds: Active Medications Acetaminophen (Tylenol) 650 mg PO Q4H PRN PRN Reason: Pain MILD(1-3)/Fever >100.5/WILSON Dextrose (D50w (25gm) Syringe) 50 ml IV Q30MIN PRN; Protocol PRN Reason: Hypoglycemia Enoxaparin Sodium (Enoxaparin) 30 mg SUB-Q QDAY LUIS Hydralazine HCl (Apresoline) 5 mg IV Q6H PRN PRN Reason: Hypertension Sodium Chloride (Nacl 0.9% 1000 Ml) 1,000 mls @ 75 mls/hr IV DIRECT LUIS Last Admin: 07/04/19 05:04 Dose: 75 mls/hr Documented by: Insulin Human Lispro (Humalog) 0 unit SUB-Q ACHS LUIS; Protocol Ondansetron HCl (Zofran) 4 mg IV Q8H PRN PRN Reason: Nausea And Vomiting Sodium Chloride (Sodium Chloride Flush Syringe 10 Ml) 10 ml IV BID LUIS Sodium Chloride (Sodium Chloride Flush Syringe 10 Ml) 10 ml IV PRN PRN PRN Reason: LINE FLUSH Review of Systems All systems: negative (per HPI) Exam - Vital Signs Vital signs: Vital Signs Temp Pulse Resp BP Pulse Ox 98.1 F 78 18 143/84 96 07/03/19 19:09 07/03/19 19:09 07/03/19 19:09 07/03/19 19:09 07/03/19 19:09 - General Appearance General appearance: well-developed, well-nourished, appears stated age EENT: PERRL, mucous membranes moist Neck: Present: neck supple, trachea midline. Absent: JVD/HJR, Masses Respiratory: Clear to Ascultation Heart: regular, normal heart rate, S1S2, no murmurs Gastrointestinal: Present: normal. Absent: tenderness, distended, masses, guarding Integumentary: no rash, warm and dry Neurologic: no focal deficit, alert and oriented x3, gait normal, strength 5/5 Musculoskeletal: Absent: deformities, joint swelling Psychiatric: mood/affect appropriate, cooperative Results - Lab Results 07/04/19 05:56 07/04/19 10:53 Most recent lab results Calcium 7.8 mg/dL (8.4-10.2) L 07/04/19 05:56 Assessment and Plan This is a 73 year old man with HTN who presents with hyponatremia. # Hyponatremia: suspect hypovolemic, hypotonic hyponatremia due to diuretic use (although unclear what he is taking). Sodium 122->129 as of this AM with IVF. Possible that he has SIADH in setting of citalopram use as well; likely a combination of these factors. - would not overcorrect sodium to more than 130 after 24 hours given unclear duration of hyponatremia; have stopped IVF for now (s/p >2L IVF) - recheck sodium in evening; if sodium downtrending, can restart gentle IVF - hold diuretics (specifically thiazide diuretics) for now - ok to replete K prn # Calcium oxalate stones: seen on UA and stones noted on CT abd/pelvis; no acute symptoms noted - if asymptomatic, can follow up outpatient for litholink and further workup - no role for citrate given alkaline urine # Gap acidosis: unclear etiology given normal renal function; denies any intoxication but will send toxicology screen. No sodium bicarbonate at this time as may lower potassium.
[2019-07-04] MEDS: ENOXAPARIN 30 MG/0.3 ML INJ SUB-Q SCH (10:39)
[2019-07-04 12:16] LABS: BUN/Creatinine Ratio 24; Blood Urea Nitrogen 12 mg/dL (9-20); Calcium 8.2 mg/dL (8.4-10.2); Hemolysis Index 3
--- NOTE | 2019-07-04 18:22 | Progress Note ---
Assessment and Plan Assessment and plan: Very pleasant 73-year-old [place] male patient with significant past medical history of hypertension diabetes mellitus dyslipidemia depression PTSD was admitted through emergency room with uncontrolled blood pressures and severe hyponatremia Evaluated by nephrology, medications optimized --Severe hyponatremia; probably due to hypovolemic IV normal saline, closely monitor electrolytes and adjust as needed --Hypokalemia -replaced per protocol and monitor levels --Calcium oxalate stones: seen on UA and stones noted on CT abd/pelvis; asymptomatic, can follow up outpatient urology --Metabolic acidosis: unclear etiology given normal renal function; symmetrical closely monitor --Malnutrition; BMI 17.7 Nutrition supplements and supportive care --Hypertension; moderate control Continue current antihypertensives and when necessary medications --Dyslipidemia; lipid-lowering medications low-cholesterol diet --Type 2 diabetes mellitus; Accu-Chek sliding scale coverage ADA diet Insulin as needed --History of depression; no suicidal thoughts or ideation Continue psych medications --History of PTSD; supportive care and continue current management --DVT prophylaxis Lovenox Monitor closely and adjust the management as needed Disposition; DC home when medically stable History Interval history: Patient Seen and examined medical records reviewed Patient complains of generalized weakness No new complaints Vital signs noted Hospitalist Physical - Constitutional Vitals: Temp Pulse Resp BP Pulse Ox 98.0 F 81 18 146/81 98 07/04/19 08:43 07/04/19 08:43 07/04/19 12:37 07/04/19 08:43 07/04/19 14:16 General appearance: Present: no acute distress, well-nourished - EENT Eyes: Present: PERRL, EOM intact - Neck Neck: Present: supple, normal ROM - Respiratory Respiratory effort: normal Respiratory: bilateral: diminished, negative: rales, rhonchi, wheezing - Cardiovascular Rhythm: regular Heart Sounds: Present: S1 & S2 - Extremities Extremities: no ischemia, No edema - Abdominal General gastrointestinal: soft, non-tender, non-distended, normal bowel sounds - Integumentary Integumentary: Present: clear, warm - Psychiatric Psychiatric: appropriate mood/affect, cooperative - Neurologic Neurologic: CNII-XII intact, moves all extremities Results - Labs CBC & Chem 7: 07/04/19 05:56 07/04/19 19:34 Labs: Laboratory Last Values WBC 3.5 K/mm3 (4.5-11.0) L 07/04/19 05:56 RBC 4.34 M/mm3 (3.65-5.03) 07/04/19 05:56 Hgb 14.2 gm/dl (11.8-15.2) 07/04/19 05:56 Hct 41.2 % (35.5-45.6) 07/04/19 05:56 MCV 95 fl (84-94) H 07/04/19 05:56 MCH 33 pg (28-32) H 07/04/19 05:56 MCHC 35 % (32-34) H 07/04/19 05:56 RDW 14.1 % (13.2-15.2) 07/04/19 05:56 Plt Count 157 K/mm3 (140-440) 07/04/19 05:56 Lymph % (Auto) 15.2 % (13.4-35.0) 07/04/19 05:56 [place] % (Auto) 11.2 % (0.0-7.3) H 07/04/19 05:56 Eos % (Auto) 0.9 % (0.0-4.3) 07/04/19 05:56 Baso % (Auto) 1.2 % (0.0-1.8) 07/04/19 05:56 Lymph # 0.5 K/mm3 (1.2-5.4) L 07/04/19 05:56 [place] # 0.4 K/mm3 (0.0-0.8) 07/04/19 05:56 Eos # 0.0 K/mm3 (0.0-0.4) 07/04/19 05:56 Baso # 0.0 K/mm3 (0.0-0.1) 07/04/19 05:56 Seg Neutrophils % 71.5 % (40.0-70.0) H 07/04/19 05:56 Seg Neutrophils # 2.5 K/mm3 (1.8-7.7) 07/04/19 05:56 Sodium 128 mmol/L (137-145) L 07/04/19 10:53 Potassium 3.5 mmol/L (3.6-5.0) L 07/04/19 10:53 Chloride 93.0 mmol/L (98-107) L 07/04/19 10:53 Carbon Dioxide 20 mmol/L (22-30) L 07/04/19 10:53 Anion Gap 19 mmol/L 07/04/19 10:53 BUN 12 mg/dL (9-20) 07/04/19 10:53 Creatinine 0.5 mg/dL (0.8-1.5) L 07/04/19 10:53 Estimated GFR > 60 ml/min 07/04/19 10:53 BUN/Creatinine Ratio 24 % 07/04/19 10:53 Glucose 225 mg/dL (75-100) H 07/04/19 10:53 POC Glucose 155 (70-105) H 07/04/19 12:25 Osmolality 269 Mosm/kg 07/04/19 10:53 Calcium 8.2 mg/dL (8.4-10.2) L 07/04/19 10:53 Total Bilirubin 0.50 mg/dL (0.1-1.2) 07/03/19 20:43 Direct Bilirubin < 0.2 mg/dL (0-0.2) 07/03/19 19:34 Indirect Bilirubin 0.4 mg/dL 07/03/19 19:34 AST 24 units/L (5-40) 07/03/19 20:43 ALT 17 units/L (7-56) 07/03/19 20:43 Alkaline Phosphatase 52 units/L (35-129) 07/03/19 20:43 Troponin T < 0.010 ng/mL (0.00-0.029) 07/03/19 20:43 Total Protein 6.4 g/dL (6.3-8.2) 07/03/19 20:43 Albumin 3.9 g/dL (3.9-5) 07/03/19 20:43 Albumin/Globulin Ratio 1.6 % 07/03/19 20:43 Lipase 70 units/L (13-60) H 07/03/19 19:34 Urine Color Yellow (Yellow) 07/03/19 Unknown Urine Turbidity Slightly-cloudy (Clear) 07/03/19 Unknown Urine pH 7.0 (5.0-7.0) 07/03/19 Unknown Ur Specific [place] 1.013 (1.003-1.030) 07/03/19 Unknown Urine Protein <15 mg/dl mg/dL (Negative) 07/03/19 Unknown Urine Glucose (UA) Neg mg/dL (Negative) 07/03/19 Unknown Urine Ketones 20 mg/dL (Negative) 07/03/19 Unknown Urine Blood Neg (Negative) 07/03/19 Unknown Urine Nitrite Neg (Negative) 07/03/19 Unknown Urine Bilirubin Neg (Negative) 07/03/19 Unknown Urine Urobilinogen 2.0 mg/dL (<2.0) 07/03/19 Unknown Ur Leukocyte Esterase Neg (Negative) 07/03/19 Unknown Urine WBC (Auto) < 1.0 /HPF (0.0-6.0) 07/03/19 Unknown Urine RBC (Auto) < 1.0 /HPF (0.0-6.0) 07/03/19 Unknown Calcium Oxalate Crystal 3+ 07/03/19 Unknown Urine Mucus Few /HPF 07/03/19 Unknown Active Medications - Current Medications Current Medications: Generic Name Dose Route Start Last Admin Trade Name Freq PRN Reason Stop Dose Admin Acetaminophen 650 mg 07/03/19 23:13 07/04/19 13:10 Tylenol PO 650 mg Q4H PRN Administration Pain MILD(1-3)/Fever >100.5/WILSON Dextrose 50 ml 07/04/19 02:34 D50w (25gm) Syringe IV Q30MIN PRN Hypoglycemia Protocol Enoxaparin Sodium 30 mg 07/04/19 10:00 07/04/19 10:39 Enoxaparin SUB-Q 30 mg QDAY LUIS Administration Hydralazine HCl 5 mg 07/04/19 01:10 Apresoline IV Q6H PRN Hypertension Insulin Human Lispro 0 unit 07/04/19 07:30 07/04/19 13:10 Humalog SUB-Q 3 unit ACHS LUIS Administration Protocol Ondansetron HCl 4 mg 07/03/19 23:13 Zofran IV Q8H PRN Nausea And Vomiting Sodium Chloride 10 ml 07/04/19 10:00 07/04/19 10:39 Sodium Chloride Flush Syringe 10 Ml IV 10 ml BID LUIS Administration Sodium Chloride 10 ml 07/03/19 23:13 Sodium Chloride Flush Syringe 10 Ml IV PRN PRN LINE FLUSH Nutrition/Malnutrition Assess - Dietary Evaluation Nutrition/Malnutrition Findings: Nutrition Notes Start: 07/04/19 15:16 Freq: Status: Active Protocol: Document 07/04/19 15:16 RM (Rec: 07/04/19 15:26 RM [id number]) Nutrition Notes Need for Assessment generated from: business analysis specialist Initial or Follow up Assessment Current Diagnosis Diabetes,Hypertension, Hyperlipidemia Other Pertinent Diagnosis Depression, PTSD Current Diet Cardiac/Consistent CHO Labs/Tests Reviewed Pertinent Medications Reviewed Height 5 ft 2 in Weight 43.9 kg [place] Body Weight (kg) 53.63 BMI 17.6 Subjective/Other Information Screened for low BMI. Pt and pt caregiver in room at time of visit. Pt speaks only Arabic so caregiver acted as oil field laborer. Stated that LEARNING AND DEVELOPMENT ADMINISTRATOR pt ate 2 small meals daily d/t a bitter taste in his mouth. Stated that pt eats most of his meals here. Pt agreed to trial of Glucerna. Stated UBW was 97 lbs but unsure of timeframe. Noted moderate temporal and slight clavicle wasting. Burn Absent Trauma Absent Minimum of two criteria Yes Energy Intake (non-severe) <75% Estimated Energy Requirement >7 days Muscle Mass Moderate Depletion (severe) #1 Nutrition Diagnosis Malnutrition Etiology decreased appetite, bitter taste in mouth As Evidenced by Signs and Symptoms moderate temporal wasting, slight clavicle wasting, BMI 17.8, pt statement that LEARNING AND DEVELOPMENT ADMINISTRATOR he ate 2 small meals daily Is patient on ventilator? No Is Patient Ambulatory and/or Out of Bed Yes REE-([facility]-ambulatory/OOB) [ 1388.725 [id number]] Kcal/Kg value to use for calculation 43 Approximate Energy Requirements Using 1888 kcal/Kg Calculation Used for Recommendations Kcal/kg Additional Notes Protein Needs: 53-66g (1.2-1. 5g/kg) Fluid Needs: 1 ml/kcal Nutrition Intervention Change Diet Order: continue current Add Supplement/Snack (indicate name/kcal Glucerna Vanilla 1 daily /protein ) Provides kCal: 220 Provides Protein (gm) 10 Goal #1 Meet at least 75% of calorie and protein needs Goal #2 Wt gain/maintenance Anticipated Discharge Needs: Cardiac/Consistent CHO diet Follow-Up By: 07/06/19 Additional Comments Follow for PO and ONS intakes
[2019-07-04 18:39] LABS: Amphetamine Screen,Urine PRESUMPTIVE NEGATIVE; Benzodiazepines Screen,Urine PRESUMPTIVE NEGATIVE; Cannabinoid Screen,Urine PRESUMPTIVE NEGATIVE; Cocaine Screen,Urine PRESUMPTIVE NEGATIVE; Methadone Screen,Urine PRESUMPTIVE NEGATIVE; Opiate Screen,Urine PRESUMPTIVE NEGATIVE
[2019-07-04 18:50] LABS: Osmolality,Urine 519 Mosm/kg
[2019-07-04 20:41] LABS: BUN/Creatinine Ratio 34; Blood Urea Nitrogen 17 mg/dL (9-20); Calcium 8.5 mg/dL (8.4-10.2); Hemolysis Index 12
[2019-07-04] MEDS ORDERED: SODIUM CHLORIDE 0.9% 1000 ML 1,000 ML IV SCH (22:00)
[2019-07-05 06:06] LABS: BUN/Creatinine Ratio 33; Blood Urea Nitrogen 13 mg/dL (9-20); Calcium 8.2 mg/dL (8.4-10.2); Hemolysis Index 7
[2019-07-05] MEDS: INSULIN LISPRO 100 UNIT/ML SUB-Q SCH ×4 (08:40→22:09)
[2019-07-05] MEDS ORDERED: POTASSIUM CHLORIDE ER 20 MEQ TAB PO ONE (09:00)
--- NOTE | 2019-07-05 10:03 | Progress Note ---
Assessment and Plan This is a 73 year old man with HTN who presents with hyponatremia. # Hyponatremia: suspect hypovolemic, hypotonic hyponatremia due to diuretic use (although unclear what he is taking). Sodium 122->129->131 as of this AM with IVF. Possible that he has SIADH in setting of citalopram use as well; likely a combination of these factors. - would not overcorrect sodium to more than 136 after 48 hours (this evening) - currently on NS at 75cc/hr for total of 1L; will recheck sodium this afternoon but likely can hold on further IVF - replete K to goal ~4meq/L - hold diuretics (specifically thiazide diuretics) for now # Calcium oxalate stones: seen on UA and stones noted on CT abd/pelvis; no acute symptoms noted - if asymptomatic, can follow up outpatient for litholink and further workup - no role for citrate given alkaline urine # Gap acidosis: improving; tox screen negative. Likely with some dilutional acidosis from NS, will monitor # Malnutrition: low phos noted in addition to hypokalemia; agree with nutrition consult. Replete P as able Subjective Date of service: 07/05/19 Principal diagnosis: hyponatremia Interval history: No acute events noted overnight. Patient in good spirits this AM, but continues to feel weak with shaking of his feet. Eating well. Objective - Exam Narrative Exam: General appearance: well-developed, well-nourished, appears stated age EENT: PERRL, mucous membranes moist Neck: Present: neck supple, trachea midline. Respiratory: Clear to Ascultation Heart: regular, normal heart rate, S1S2, no murmurs Gastrointestinal: Present: normal. Absent: tenderness, distended, masses, gu arding Integumentary: no rash, warm and dry Neurologic: no focal deficit, alert and oriented x3, spontaneous shaking of feet noted Musculoskeletal: Absent: deformities, joint swelling Psychiatric: mood/affect appropriate, cooperative - Vital Signs Vital signs: Vital Signs - 12hr 07/04/19 07/05/19 07/05/19 23:46 03:41 04:22 Temperature 98.2 F 97.4 F L Pulse Rate 82 79 Respiratory 16 18 Rate Blood Pressure 150/79 150/86 O2 Sat by Pulse 96 95 Oximetry - Lab 07/04/19 05:56 07/05/19 04:20 Most recent lab results Calcium 8.2 mg/dL (8.4-10.2) L 07/05/19 04:20 Phosphorus 2.30 mg/dL (2.5-4.5) L 07/05/19 04:20 Magnesium 2.00 mg/dL (1.7-2.3) 07/05/19 04:20 Urine Sodium 132 mmol/L 07/04/19 Unknown Medications & Allergies - Medications Allergies/Adverse Reactions: Allergies No Known Allergies Allergy (Verified 06/12/19 09:29) Home Medications: Home Medications Medication Instructions Recorded Confirmed Last Taken Type Metoprolol [Lopressor TAB] 25 mg PO DAILY 08/13/18 07/03/19 Unknown History Ranitidine HCl [Acid Lead Ruby On Rails Developer] 150 mg PO BID 08/13/18 07/03/19 Unknown History metFORMIN XR [Glucophage XR] 500 mg PO QDDIAB #60 tablet 08/14/18 07/03/19 Unknown Rx Aspirin 325 mg PO QDAY #30 tablet 06/14/19 07/03/19 Unknown Rx AtorvaSTATin [Lipitor] 40 mg PO QHS #30 tablet 06/14/19 07/03/19 Unknown Rx Citalopram [celeXA] 20 mg PO QDAY 07/03/19 07/03/19 Unknown History Tamsulosin [Flomax] 0.4 mg PO QDAY 07/03/19 07/03/19 Unknown History Active Medications: Generic Name Dose Route Start Last Admin Trade Name Freq PRN Reason Stop Dose Admin Acetaminophen 650 mg 07/03/19 23:13 07/04/19 13:10 Tylenol PO 650 mg Q4H PRN Administration Pain MILD(1-3)/Fever >100.5/WILSON Dextrose 50 ml 07/04/19 02:34 D50w (25gm) Syringe IV Q30MIN PRN Hypoglycemia Protocol Enoxaparin Sodium 30 mg 07/04/19 10:00 07/04/19 10:39 Enoxaparin SUB-Q 30 mg QDAY LUIS Administration Hydralazine HCl 5 mg 07/04/19 01:10 Apresoline IV Q6H PRN Hypertension Sodium Chloride 1,000 mls @ 75 mls/hr 07/04/19 22:00 Nacl 0.9% 1000 Ml IV DIRECT LUIS Insulin Human Lispro 0 unit 07/04/19 07:30 07/05/19 08:40 Humalog SUB-Q Not Given ACHS [facility] Protocol Ondansetron HCl 4 mg 07/03/19 23:13 Zofran IV Q8H PRN Nausea And Vomiting Sodium Chloride 10 ml 07/04/19 10:00 07/04/19 22:34 Sodium Chloride Flush Syringe 10 Ml IV 10 ml BID LUIS Administration Sodium Chloride 10 ml 07/03/19 23:13 Sodium Chloride Flush Syringe 10 Ml IV PRN PRN LINE FLUSH
[2019-07-05] MEDS: ENOXAPARIN 30 MG/0.3 ML INJ SUB-Q SCH (10:13)
--- NOTE | 2019-07-05 12:37 | Progress Note ---
Assessment and Plan Assessment and plan: 73-year-old male patient with significant past medical history of hypertension diabetes mellitus dyslipidemia depression PTSD was admitted through emergency room with uncontrolled blood pressures and severe hyponatremia Evaluated by nephrology, medications optimized --Severe hyponatremia; probably due to hypovolemic IV normal saline, closely monitor electrolytes and adjust as needed Improving some, Nephrology following, concerning for SIADH in the setting of citalopram use. Aboved overcorrection. --Hypokalemia -replaced per protocol and monitor levels --Calcium oxalate stones: seen on UA and stones noted on CT abd/pelvis; asymptomatic, can follow up outpatient urology --Metabolic acidosis: unclear etiology given normal renal function; symmetrical closely monitor --Severe protein calorie Malnutrition; BMI 17.7 Nutrition supplements and supportive care --Hypertension; moderate control Continue current antihypertensives and when necessary medications --Dyslipidemia; lipid-lowering medications low-cholesterol diet --Type 2 diabetes mellitus; Accu-Chek sliding scale coverage ADA diet Insulin as needed --History of depression; no suicidal thoughts or ideation Continue psych medications --History of PTSD; supportive care and continue current management --DVT prophylaxis Lovenox Monitor closely and adjust the management as needed Disposition; DC home when medically stable Anticiopate discharge in am History Interval history: Patient seen and examined, reports bilateral lower ext tremors. No other complaints at this time Hospitalist Physical - Physical exam Narrative exam: General appearance: Present: no acute distress, well-nourished - EENT Eyes: Present: PERRL, EOM intact - Neck Neck: Present: supple, normal ROM - Respiratory Respiratory effort: normal Respiratory: bilateral: diminished, negative: rales, rhonchi, wheezing - Cardiovascular Rhythm: regular Heart Sounds: Present: S1 & S2 - Extremities Extremities: no ischemia, No edema - Abdominal General gastrointestinal: soft, non-tender, non-distended, normal bowel sounds - Integumentary Integumentary: Present: clear, warm - Psychiatric Psychiatric: appropriate mood/affect, cooperative - Neurologic Neurologic: CNII-XII intact, moves all extremities, bilateral lower ext tremor - Constitutional Vitals: Temp Pulse Resp BP Pulse Ox 97.4 F L 81 19 145/87 96 07/05/19 04:22 07/05/19 11:59 07/05/19 10:00 07/05/19 11:59 07/05/19 11:59 General appearance: Present: no acute distress, well-nourished Results - Labs CBC & Chem 7: 07/04/19 05:56 07/05/19 14:21 Labs: Laboratory Last Values WBC 3.5 K/mm3 (4.5-11.0) L 07/04/19 05:56 RBC 4.34 M/mm3 (3.65-5.03) 07/04/19 05:56 Hgb 14.2 gm/dl (11.8-15.2) 07/04/19 05:56 Hct 41.2 % (35.5-45.6) 07/04/19 05:56 MCV 95 fl (84-94) H 07/04/19 05:56 MCH 33 pg (28-32) H 07/04/19 05:56 MCHC 35 % (32-34) H 07/04/19 05:56 RDW 14.1 % (13.2-15.2) 07/04/19 05:56 Plt Count 157 K/mm3 (140-440) 07/04/19 05:56 Lymph % (Auto) 15.2 % (13.4-35.0) 07/04/19 05:56 [place] % (Auto) 11.2 % (0.0-7.3) H 07/04/19 05:56 Eos % (Auto) 0.9 % (0.0-4.3) 07/04/19 05:56 Baso % (Auto) 1.2 % (0.0-1.8) 07/04/19 05:56 Lymph # 0.5 K/mm3 (1.2-5.4) L 07/04/19 05:56 [place] # 0.4 K/mm3 (0.0-0.8) 07/04/19 05:56 Eos # 0.0 K/mm3 (0.0-0.4) 07/04/19 05:56 Baso # 0.0 K/mm3 (0.0-0.1) 07/04/19 05:56 Seg Neutrophils % 71.5 % (40.0-70.0) H 07/04/19 05:56 Seg Neutrophils # 2.5 K/mm3 (1.8-7.7) 07/04/19 05:56 Sodium 131 mmol/L (137-145) L 07/05/19 04:20 Potassium 3.4 mmol/L (3.6-5.0) L 07/05/19 04:20 Chloride 95.9 mmol/L (98-107) L 07/05/19 04:20 Carbon Dioxide 21 mmol/L (22-30) L 07/05/19 04:20 Anion Gap 18 mmol/L 07/05/19 04:20 BUN 13 mg/dL (9-20) 07/05/19 04:20 Creatinine 0.4 mg/dL (0.8-1.5) L 07/05/19 04:20 Estimated GFR > 60 ml/min 07/05/19 04:20 BUN/Creatinine Ratio 33 % 07/05/19 04:20 Glucose 97 mg/dL (75-100) 07/05/19 04:20 POC Glucose 123 (70-105) H 07/05/19 07:32 Osmolality 269 Mosm/kg 07/04/19 10:53 Calcium 8.2 mg/dL (8.4-10.2) L 07/05/19 04:20 Phosphorus 2.30 mg/dL (2.5-4.5) L 07/05/19 04:20 Magnesium 2.00 mg/dL (1.7-2.3) 07/05/19 04:20 Total Bilirubin 0.50 mg/dL (0.1-1.2) 07/03/19 20:43 Direct Bilirubin < 0.2 mg/dL (0-0.2) 07/03/19 19:34 Indirect Bilirubin 0.4 mg/dL 07/03/19 19:34 AST 24 units/L (5-40) 07/03/19 20:43 ALT 17 units/L (7-56) 07/03/19 20:43 Alkaline Phosphatase 52 units/L (35-129) 07/03/19 20:43 Troponin T < 0.010 ng/mL (0.00-0.029) 07/03/19 20:43 Total Protein 6.4 g/dL (6.3-8.2) 07/03/19 20:43 Albumin 3.9 g/dL (3.9-5) 07/03/19 20:43 Albumin/Globulin Ratio 1.6 % 07/03/19 20:43 Lipase 70 units/L (13-60) H 07/03/19 19:34 Urine Color Yellow (Yellow) 07/03/19 Unknown Urine Turbidity Slightly-cloudy (Clear) 07/03/19 Unknown Urine pH 7.0 (5.0-7.0) 07/03/19 Unknown Ur Specific Marks 1.013 (1.003-1.030) 07/03/19 Unknown Urine Protein <15 mg/dl mg/dL (Negative) 07/03/19 Unknown Urine Glucose (UA) Neg mg/dL (Negative) 07/03/19 Unknown Urine Ketones 20 mg/dL (Negative) 07/03/19 Unknown Urine Blood Neg (Negative) 07/03/19 Unknown Urine Nitrite Neg (Negative) 07/03/19 Unknown Urine Bilirubin Neg (Negative) 07/03/19 Unknown Urine Urobilinogen 2.0 mg/dL (<2.0) 07/03/19 Unknown Ur Leukocyte Esterase Neg (Negative) 07/03/19 Unknown Urine WBC (Auto) < 1.0 /HPF (0.0-6.0) 07/03/19 Unknown Urine RBC (Auto) < 1.0 /HPF (0.0-6.0) 07/03/19 Unknown Calcium Oxalate Crystal 3+ 07/03/19 Unknown Urine Mucus Few /HPF 07/03/19 Unknown Urine Osmolality 519 Mosm/kg 07/04/19 Unknown Urine Sodium 132 mmol/L 07/04/19 Unknown Urine Opiates Screen Presumptive negative 07/04/19 Unknown Urine Methadone Screen Presumptive negative 07/04/19 Unknown Ur Barbiturates Screen Presumptive negative 07/04/19 Unknown Ur Phencyclidine Scrn Presumptive negative 07/04/19 Unknown Ur Amphetamines Screen Presumptive negative 07/04/19 Unknown U Benzodiazepines Scrn Presumptive negative 07/04/19 Unknown Urine Cocaine Screen Presumptive negative 07/04/19 Unknown U Marijuana (THC) Screen Presumptive negative 07/04/19 Unknown Drugs of Abuse Note Disclamer 07/04/19 Unknown Active Medications - Current Medications Current Medications: Generic Name Dose Route Start Last Admin Trade Name Freq PRN Reason Stop Dose Admin Acetaminophen 650 mg 07/03/19 23:13 07/04/19 13:10 Tylenol PO 650 mg Q4H PRN Administration Pain MILD(1-3)/Fever >100.5/WILSON Dextrose 50 ml 07/04/19 02:34 D50w (25gm) Syringe IV Q30MIN PRN Hypoglycemia Protocol Enoxaparin Sodium 30 mg 07/04/19 10:00 07/05/19 10:13 Enoxaparin SUB-Q 30 mg QDAY LUIS Administration Hydralazine HCl 5 mg 07/04/19 01:10 Apresoline IV Q6H PRN Hypertension Sodium Chloride 1,000 mls @ 75 mls/hr 07/04/19 22:00 Nacl 0.9% 1000 Ml IV DIRECT LUIS Insulin Human Lispro 0 unit 07/04/19 07:30 07/05/19 12:34 Humalog SUB-Q Not Given ACHS [facility] Protocol Ondansetron HCl 4 mg 07/03/19 23:13 Zofran IV Q8H PRN Nausea And Vomiting Sodium Chloride 10 ml 07/04/19 10:00 07/05/19 10:13 Sodium Chloride Flush Syringe 10 Ml IV 10 ml BID LUIS Administration Sodium Chloride 10 ml 07/03/19 23:13 Sodium Chloride Flush Syringe 10 Ml IV PRN PRN LINE FLUSH Nutrition/Malnutrition Assess - Dietary Evaluation Nutrition/Malnutrition Findings: Nutrition Notes Start: 07/04/19 15:16 Freq: Status: Active Protocol: Document 07/04/19 15:16 RM (Rec: 07/04/19 15:26 RM [id number]) Nutrition Notes Need for Assessment generated from: call center analyst Initial or Follow up Assessment Current Diagnosis Diabetes,Hypertension, Hyperlipidemia Other Pertinent Diagnosis Depression, PTSD Current Diet Cardiac/Consistent CHO Labs/Tests Reviewed Pertinent Medications Reviewed Height 5 ft 2 in Weight 43.9 kg [place] Body Weight (kg) 53.63 BMI 17.6 Subjective/Other Information Screened for low BMI. Pt and pt caregiver in room at time of visit. Pt speaks only [place] so caregiver acted as manager policy. Stated that FARMWORKER pt ate 2 small meals daily d/t a bitter taste in his mouth. Stated that pt eats most of his meals here. Pt agreed to trial of Glucerna. Stated UBW was 97 lbs but unsure of timeframe. Noted moderate temporal and slight clavicle wasting. Burn Absent Trauma Absent Minimum of two criteria Yes Energy Intake (non-severe) <75% Estimated Energy Requirement >7 days Muscle Mass Moderate Depletion (severe) #1 Nutrition Diagnosis Malnutrition Etiology decreased appetite, bitter taste in mouth As Evidenced by Signs and Symptoms moderate temporal wasting, slight clavicle wasting, BMI 17.8, pt statement that FARMWORKER he ate 2 small meals daily Is patient on ventilator? No Is Patient Ambulatory and/or Out of Bed Yes REE-([facility]-ambulatory/OOB) [ 1388.725 [id number]] Kcal/Kg value to use for calculation 43 Approximate Energy Requirements Using 1888 kcal/Kg Calculation Used for Recommendations Kcal/kg Additional Notes Protein Needs: 53-66g (1.2-1. 5g/kg) Fluid Needs: 1 ml/kcal Nutrition Intervention Change Diet Order: continue current Add Supplement/Snack (indicate name/kcal Glucerna Vanilla 1 daily /protein ) Provides kCal: 220 Provides Protein (gm) 10 Goal #1 Meet at least 75% of calorie and protein needs Goal #2 Wt gain/maintenance Anticipated Discharge Needs: Cardiac/Consistent CHO diet Follow-Up By: 07/06/19 Additional Comments Follow for PO and ONS intakes
[2019-07-05 15:01] LABS: BUN/Creatinine Ratio 27; Blood Urea Nitrogen 16 mg/dL (9-20); Calcium 8.8 mg/dL (8.4-10.2); Hemolysis Index 25
[2019-07-05] MEDS ORDERED: TEMAZEPAM 15 MG CAP PO PRN (18:14)
[2019-07-06] MEDS: INSULIN LISPRO 100 UNIT/ML SUB-Q SCH (08:03)
[2019-07-06 08:09] LABS: BUN/Creatinine Ratio 26; Blood Urea Nitrogen 13 mg/dL (9-20); Calcium 8.8 mg/dL (8.4-10.2); Hemolysis Index 18
[2019-07-06 10:06] VITALS: BP 131/85
[2019-07-06] MEDS: ENOXAPARIN 30 MG/0.3 ML INJ SUB-Q SCH (10:07)
--- NOTE | 2019-07-06 11:58 | Progress Note ---
Assessment and Plan This is a 73 year old man with HTN who presents with hyponatremia. # Hyponatremia: suspect hypovolemic, hypotonic hyponatremia due to diuretic use (although unclear what he is taking). Sodium 122->129->132 as of this AM with IVF. Possible that he has SIADH in setting of citalopram use as well; likely a combination of these factors. - will hold further IVF and encourage regular po intake - hold diuretics (specifically thiazide diuretics) for now - ok for discharge from renal perspective, will set up close follow up in our clinic # Calcium oxalate stones: seen on UA and stones noted on CT abd/pelvis; no acute symptoms noted - if asymptomatic, can follow up outpatient for litholink and further workup - no role for citrate given alkaline urine # Gap acidosis: improving; tox screen negative. Likely with some dilutional acidosis from NS, will monitor and repeat labs as outpatient # Malnutrition: low phos noted in addition to hypokalemia; agree with nutrition consult. Replete P as able Subjective Date of service: 07/06/19 Principal diagnosis: hyponatremia Interval history: No acute events noted overnight. Patient in good spirits this AM. Continues to eat well. Objective - Exam Narrative Exam: General appearance: well-developed, well-nourished, appears stated age, sitting up in bed EENT: PERRL, mucous membranes moist Neck: Present: neck supple, trachea midline. Respiratory: Clear to Ascultation Heart: regular, normal heart rate, S1S2, no murmurs Gastrointestinal: Present: normal. Absent: tenderness, distended, masses, guarding Integumentary: no rash, warm and dry Neurologic: no focal deficit, alert and oriented x3 Musculoskeletal: Absent: deformities, joint swelling Psychiatric: mood/affect appropriate, cooperative - Vital Signs Vital signs: Vital Signs - 12hr 07/06/19 07/06/19 07/06/19 03:44 08:58 10:00 Temperature 98.3 F 97.8 F Pulse Rate 77 76 89 Respiratory 16 18 Rate Blood Pressure 146/89 131/85 O2 Sat by Pulse 97 98 Oximetry - Lab 07/04/19 05:56 07/06/19 06:42 Most recent lab results Calcium 8.8 mg/dL (8.4-10.2) 07/06/19 06:42 Phosphorus 2.30 mg/dL (2.5-4.5) L 07/05/19 04:20 Magnesium 2.00 mg/dL (1.7-2.3) 07/05/19 04:20 Urine Sodium 132 mmol/L 07/04/19 Unknown Medications & Allergies - Medications Allergies/Adverse Reactions: Allergies No Known Allergies Allergy (Verified 06/12/19 09:29) Home Medications: Home Medications Medication Instructions Recorded Confirmed Last Taken Type Metoprolol [Lopressor TAB] 25 mg PO DAILY 08/13/18 07/03/19 Unknown History Ranitidine HCl [Acid Analyst Competitive Intelligence] 150 mg PO BID 08/13/18 07/03/19 Unknown History metFORMIN XR [Glucophage XR] 500 mg PO QDDIAB #60 tablet 08/14/18 07/03/19 Unkno wn Rx Aspirin 325 mg PO QDAY #30 tablet 06/14/19 07/03/19 Unknown Rx AtorvaSTATin [Lipitor] 40 mg PO QHS #30 tablet 06/14/19 07/03/19 Unknown Rx Citalopram [celeXA] 20 mg PO QDAY 07/03/19 07/03/19 Unknown History Tamsulosin [Flomax] 0.4 mg PO QDAY 07/03/19 07/03/19 Unknown History Active Medications: Generic Name Dose Route Start Last Admin Trade Name Freq PRN Reason Stop Dose Admin Acetaminophen 650 mg 07/03/19 23:13 07/04/19 13:10 Tylenol PO 650 mg Q4H PRN Administration Pain MILD(1-3)/Fever >100.5/WILSON Dextrose 50 ml 07/04/19 02:34 D50w (25gm) Syringe IV Q30MIN PRN Hypoglycemia Protocol Enoxaparin Sodium 30 mg 07/04/19 10:00 07/06/19 10:07 Enoxaparin SUB-Q 30 mg QDAY LUIS Administration Hydralazine HCl 5 mg 07/04/19 01:10 Apresoline IV Q6H PRN Hypertension Insulin Human Lispro 0 unit 07/04/19 07:30 07/06/19 08:03 Humalog SUB-Q Not Given ACHS LUIS Protocol Ondansetron HCl 4 mg 07/03/19 23:13 Zofran IV Q8H PRN Nausea And Vomiting Sodium Chloride 10 ml 07/04/19 10:00 07/06/19 10:07 Sodium Chloride Flush Syringe 10 Ml IV 10 ml BID LUIS Administration Sodium Chloride 10 ml 07/03/19 23:13 Sodium Chloride Flush Syringe 10 Ml IV PRN PRN LINE FLUSH Temazepam 15 mg 07/05/19 18:14 07/05/19 21:08 Restoril PO 15 mg QHS PRN Administration Sleep
--- NOTE | 2019-07-06 12:23 | Discharge Summary ---
Providers - Providers Date of Admission: 07/03/19 22:52 Attending physician: NOAH CLEVELAND MD 07/03/19 23:13 Consult to Physician [CONS] Routine Comment: Consulting Provider: AMMON LIRA Physician Instructions: Reason For Exam: na 121 Primary care physician: MEDIA ACCOUNT EXECUTIVE Hospitalization Reason for admission: hyponatremia Condition: Stable Hospital course: 73-year-old male patient with significant past medical history of hypertension diabetes mellitus dyslipidemia depression PTSD was admitted through emergency room with uncontrolled blood pressures and severe hyponatremia Evaluated by nephrology, medications optimized --Severe hyponatremia; probably due to hypovolemic IV normal saline Was given initally then held with Nephrology following, concerning for SIADH in the setting of citalopram use. Aboved overcorrection. Thiazid duretics was discontinued and this discussed with the patient Patient to follow with Nephrology --Hypokalemia -replaced per protocol and monitor levels --Calcium oxalate stones: seen on UA and stones noted on CT abd/pelvis; asymptomatic, can follow up outpatient urology No indication for citrate given alkaline urine --Metabolic acidosis: unclear etiology given normal renal function; improved --Severe protein calorie Malnutrition; BMI 17.7 Nutrition supplements and supportive care --Hypertension; moderate control Continue current antihypertensives and when necessary medications --Dyslipidemia; lipid-lowering medications low-cholesterol diet --Type 2 diabetes mellitus; Accu-Chek sliding scale coverage ADA diet Insulin as needed --History of depression; no suicidal thoughts or ideation Continue psych medications --History of PTSD; supportive care and continue current management --Insomnia- started on Restoril and patient showed improvement Disposition: - TO HOME OR SELFCARE Time spent for discharge: 35 mins Core Measure Documentation - Palliative Care Palliative Care/ Comfort Measures: Not Applicable - Core Measures Any of the following diagnoses?: none Exam - Physical Exam Narrative exam: General appearance: Present: no acute distress, well-nourished - EENT Eyes: Present: PERRL, EOM intact - Neck Neck: Present: supple, normal ROM - Respiratory Respiratory effort: normal Respiratory: bilateral: diminished, negative: rales, rhonchi, wheezing - Cardiovascular Rhythm: regular Heart Sounds: Present: S1 & S2 - Extremities Extremities: no ischemia, No edema - Abdominal General gastrointestinal: soft, non-tender, non-distended, normal bowel sounds - Integumentary Integumentary: Present: clear, warm - Psychiatric Psychiatric: appropriate mood/affect, cooperative - Neurologic Neurologic: CNII-XII intact, moves all extremities, bilateral lower ext tremor. improved today - Constitutional Vitals: Temp Pulse Resp BP Pulse Ox 97.8 F 89 18 131/85 98 07/06/19 08:58 07/06/19 10:00 07/06/19 08:58 07/06/19 08:58 07/06/19 08:58 Plan Activity: advance as tolerated, fall precautions Diet: low fat, low salt, diabetic Special Instructions: record daily BP diary, record blood sugar diary Care Plan Goals: improved renal and sodium state Plan of Treatment: discontinue thiazid diuretics. Health Concerns: hyponatremia Follow up with: PRIMARY CAREMD [Primary Care Provider] - 7 Days BRUNA PRINCE MD [Staff Physician] - 7 Days Prescriptions: Temazepam [Restoril] 15 mg PO QHS PRN #30 capsule PRN Reason: Sleep
== END 2019-07-06 14:00 | disposition home or self-care (01) | DRG 643 ==
LOC: ED 17:14 → 4A 22:52
PROVIDERS: ADMIT Internal Medicine; ATTEND Internal Medicine
DX: E22.2 Syndrome of inappropriate secretion of antidiuretic hormone (principal); E43 Unspecified severe protein-calorie malnutrition; Z68.1 Body mass index [BMI] 19.9 or less, adult; E87.2 Acidosis; E11.9 Type 2 diabetes mellitus without complications; I10 Essential (primary) hypertension; F32.9 Major depressive disorder, single episode, unspecified; F43.10 Post-traumatic stress disorder, unspecified; E87.6 Hypokalemia; K21.9 Gastro-esophageal reflux disease without esophagitis; M19.90 Unspecified osteoarthritis, unspecified site; N20.0 Calculus of kidney; N21.0 Calculus in bladder; E78.5 Hyperlipidemia, unspecified; T50.2X5A Adverse effect of carbonic-anhydrase inhibitors, benzothiadiazides and other diuretics, initial encounter; Z79.899 Other long term (current) drug therapy; Z79.82 Long term (current) use of aspirin; Z82.49 Family history of ischemic heart disease and other diseases of the circulatory system; Z83.3 Family history of diabetes mellitus; Y92.89 Other specified places as the place of occurrence of the external cause
CPT/HCPCS: 36415; 71046; 74176; 80048; 80053; 80076; 80307; 81001; 82607; 82747; 82962; 83690; 83735; 83930; 83935; 84100; 84300; 84443; 84484; 85025; 85027; 93005; 93010; G0378; J1650; J7030

== ENCOUNTER 2019-10-28 09:34 | Emergency (ER) | payer MEDICARE ==
[2019-10-28 09:52] VITALS: BP 133/85
[2019-10-28] MEDS ORDERED: dexAMETHasone 20 MG/5 ML VIAL IV ONE (11:09)
--- NOTE | 2019-10-28 11:25 | Emergency Department Report ---
ED Eye Problem HPI - General Chief complaint: Eye Problems Stated complaint: RIGHT EYE PAIN Time Seen by Provider: 10/28/19 10:47 Source: patient Mode of arrival: Ambulatory Limitations: Language Barrier - History of Present Illness Initial comments: This is a 74-year-old male who presents the ED complaining of right eye swelling and redness for the past 3 days. Patient states initially about a week ago he experienced some burning tingling sensation across his head to his face. Patient also states that shortly he did notice rash to the right upper forehead and eye area. Patient states that initially scratched it causing blister. 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 Patient states he has been using that as instructed but today he has some swelling and redness to the right eye so he presents here. Patient denies any vision loss, eye pain, vision pain, blurry vision to the eye - Related Data Home Medications Medication Instructions Recorded Confirmed Last Taken Metoprolol [Lopressor TAB] 25 mg PO DAILY 08/13/18 07/03/19 Unknown raNITIdine HCl [Acid Container Filler] 150 mg PO BID 08/13/18 07/03/19 Unknown Citalopram [Celexa] 20 mg PO QDAY 07/03/19 07/03/19 Unknown Tamsulosin [Flomax] 0.4 mg PO QDAY 07/03/19 07/03/19 Unknown Previous Rx's Medication Instructions Recorded Last Taken Type metFORMIN XR [Glucophage XR] 500 mg PO QDDIAB #60 tablet 08/14/18 Unknown Rx Aspirin 325 mg PO QDAY #30 tablet 06/14/19 Unknown Rx AtorvaSTATin [Lipitor] 40 mg PO QHS #30 tablet 06/14/19 Unknown Rx Temazepam [Restoril] 15 mg PO QHS PRN #30 capsule 07/06/19 Unknown Rx Allergies Allergy/AdvReac Type Severity Reaction Status Date / Time No Known Allergies Allergy Verified 06/12/19 09:29 ED Review of Systems ROS: Stated complaint: RIGHT EYE PAIN Other details as noted in HPI Comment: All other systems reviewed and negative ED Past Medical Hx - Past Medical History Previous Medical History?: Yes Hx Hypertension: Yes Hx Heart Attack/AMI: No Hx Congestive Heart Failure: No Hx Diabetes: Yes Hx Deep Vein Thrombosis: No Hx Liver Disease: No Hx Arthritis: Yes Additional medical history: high cholesterol, sinusitis,insomnia - Surgical History Hx Coronary Stent: No Hx Pacemaker: No Hx Internal Defibrillator: No - Social History Smoking Status: Never Smoker Substance Use Type: None - Medications Home Medications: Home Medications Medication Instructions Recorded Confirmed Last Taken Type Metoprolol [Lopressor TAB] 25 mg PO DAILY 08/13/18 07/03/19 Unknown History raNITIdine HCl [Acid Container Filler] 150 mg PO BID 08/13/18 07/03/19 Unknown History metFORMIN XR [Glucophage XR] 500 mg PO QDDIAB #60 tablet 08/14/18 07/03/19 Unknown Rx Aspirin 325 mg PO QDAY #30 tablet 06/14/19 07/03/19 Unknown Rx AtorvaSTATin [Lipitor] 40 mg PO QHS #30 tablet 06/14/19 07/03/19 Unknown Rx Citalopram [Celexa] 20 mg PO QDAY 07/03/19 07/03/19 Unknown History Tamsulosin [Flomax] 0.4 mg PO QDAY 07/03/19 07/03/19 Unknown History Temazepam [Restoril] 15 mg PO QHS PRN #30 capsule 07/06/19 Unknown Rx ED Physical Exam - General Limitations: Language Barrier General appearance: alert, in no apparent distress - Head Head exam: Present: atraumatic, normocephalic - Eye Eye exam: Present: normal appearance, PERRL, periorbital swelling. Absent: periorbital tenderness Pupils: Present: normal accommodation - Expanded Eye Exam Expanded Eyelids: Erythema: Right, Swelling: Right (Noted surrounding the right eyebrow check) Pupils: Regular, Round: Bilateral, Reactive: Bilateral Sclera/Conjunctival: Normal Inspection: Bilateral - ENT ENT exam: Present: mucous membranes moist - Neck Neck exam: Present: normal inspection - Respiratory Respiratory exam: Present: normal lung sounds bilaterally. Absent: respiratory distress - Cardiovascular Cardiovascular Exam: Present: regular rate, normal rhythm. Absent: systolic murmur, diastolic murmur, rubs, gallop - GI/Abdominal GI/Abdominal exam: Present: soft, normal bowel sounds - Rectal Rectal exam: Present: deferred - Extremities Exam Extremities exam: Present: normal inspection - Back Exam Back exam: Present: normal inspection - Neurological Exam Neurological exam: Present: alert, oriented X3 - Psychiatric Psychiatric exam: Present: normal affect, normal mood - Skin Skin exam: Present: warm, dry, intact, normal color. Absent: rash ED Course Vital Signs 10/28/19 09:46 Temperature 99.1 F Pulse Rate 121 H Respiratory 20 Rate Blood Pressure 133/85 O2 Sat by Pulse 97 Oximetry ED Medical Decision Making - Radiology Data Radiology results: report reviewed, image reviewed - Medical Decision Making This 74-year-old male who presents with ocular herpes zoster, shingles Patient is already taking acyclovir 800 mg 3 times a day along with erythromycin ointment. Due to the fact that it appears to be some cellulitis secondary to secondary infection. Patient treated here with IV clindamycin as well as IV Decadron to reduce swelling. Discussed with patient to continue taking acyclovir and erythromycin ointment. 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 Vital signs are normal vision is intact patient is in no acute distress patient denied any eye pain Instructions given to patient and his son. Critical care attestation.: If time is entered above; I have spent that time in minutes in the direct care of this critically ill patient, excluding procedure time. ED Disposition Clinical Impression: Ocular herpes zoster, Shingles outbreak Disposition: DC-01 TO HOME OR SELFCARE Is pt being admited?: No Does the pt Need Aspirin: No Condition: Stable Instructions: Herpes Zoster (ED), Orbital Cellulitis (ED) Additional Instructions: Make sure to follow up with the primary care physician as discussed. Take all your medications as you've been prescribed. If you have any worsening symptoms or develop new symptoms please return to ED immediately. Referrals: LILLY FOURNIER MD [Primary Care Provider] - 3-5 Days WILNER DENNIS MD [Staff Physician] - 3-5 Days [facility] [Provider Group] - 3-5 Days [employer] [facility] [Provider Group] - 3-5 Days Forms: Accompanied Note, Work/School Release Form(ED) Time of Disposition: 12:25
== END 2019-10-28 13:39 | disposition home or self-care (01) ==
LOC: ED 09:34
DX: B02.30 Zoster ocular disease, unspecified (principal); I10 Essential (primary) hypertension; E11.9 Type 2 diabetes mellitus without complications; M19.90 Unspecified osteoarthritis, unspecified site; E78.00 Pure hypercholesterolemia, unspecified; G47.09 Other insomnia; Z79.899 Other long term (current) drug therapy
CPT/HCPCS: 96365; 96375; 99282; J1100